=== PATIENT | female | born 1960 | race Caucasian/White ===

== ENCOUNTER 2016-05-30 08:17 | Inpatient (IN) | payer OTHER ==
[~2016-05-30] VITALS: Ht 167.6 cm; Wt 85.9 kg
[2016-05-30] MEDS ORDERED: ONDANSETRON 8 MG/54 ML D5W IV STA (08:38)
[2016-05-30] MEDS ORDERED: SODIUM CHLORIDE 0.9% 1000ML 1,000 ML IV STA ×2 (08:38→13:36)
[2016-05-30 08:50] LABS: BASO % 0.4 %; BASO ABS # 0.05 K/uL (0-0.2); COMPLETE YES; EOS % 0.9 %; HEMATOCRIT 41.6 % (37-47); IG% 0.3 %; LYMPH % 16.4 %; LYMPH ABS # 2.28 K/uL (1.2-3.4); MEAN CORPUSCULAR HEMOGLOBIN 30.1 pg (25-34); MEAN CORPUSCULAR HGB CONC 34.6 g/dl (32-36); MEAN PLATELET VOLUME 9.3 fL (7.4-10.4); MONO % 4.1 %; NEUT % 77.9 %; PLATELET COUNT 389 K/uL (130-400); RED BLOOD COUNT 4.78 M/uL (4.2-5.4); WHITE BLOOD COUNT 13.93 K/uL (4.8-10.8)
[2016-05-30 08:58] LABS: PROTHROMBIN TIME (PATIENT) 10.3 SECONDS (9.0-12.0)
[2016-05-30 09:08] LABS: ALT/SGPT 43 U/L (12-78); BLOOD UREA NITROGEN 18 mg/dl (7-18); BUN/CREATININE RATIO 16.4 (10-20); CALCIUM 9.5 mg/dl (8.5-10.1); CARBON DIOXIDE 23 mmol/L (21-32); CHLORIDE 106 mmol/L (98-107); GLUCOSE 130 mg/dl (70-99); MAGNESIUM 2.1 mg/dl (1.8-2.4); POTASSIUM 3.3 mmol/L (3.5-5.1); SODIUM 140 mmol/L (136-145)
--- NOTE | 2016-05-30 09:14 | DIAGNOSTIC IMAGING REPORT ---
CHEST ONE VIEW PORTABLE CLINICAL HISTORY: Chest pain, vomiting, nausea. COMPARISON STUDY: No previous studies for comparison. FINDINGS: The cardiac and mediastinal contours are normal. There is no evidence of focal pulmonary consolidation. There is no evidence of failure. No pleural effusions are visualized.[ There are old left-sided rib fractures. IMPRESSION: No active disease in the chest. Electronically signed by: Taqueria Ashley M.D. 05/30/2016 9:13 AM Dictated Date/Time: 05/30/2016 9:13 AM
[2016-05-30 09:18] LABS: ALKALINE PHOSPHATASE 77 U/L (45-117); AST/SGOT 38 U/L (15-37)
[2016-05-30] MEDS ORDERED: PROMETHAZINE HCL INJ 25 MG in SODIUM CHLORIDE 0.9% 50ML 50 ML IV STA (09:25)
[2016-05-30] MEDS ORDERED: PROCHLORPERAZINE 5 MG/ML 2 ML VIAL IV STA (10:51)
[2016-05-30] MEDS ORDERED: DiphenhydrAMINE HCL 50 MG/ML VIAL IV STA (10:51)
--- NOTE | 2016-05-30 11:34 | DIAGNOSTIC IMAGING REPORT ---
CT OF THE ABDOMEN AND PELVIS WITHOUT CONTRAST CLINICAL HISTORY: Intractable nausea and vomiting. COMPARISON STUDY: No previous studies for comparison. TECHNIQUE: Axial images of the abdomen and pelvis were obtained without IV contrast. Images were reviewed in the axial, sagittal, and coronal planes. FINDINGS: No pneumatosis, free air or portal venous gas is present. No renal, ureteral or bladder calculi are present. There is fatty infiltration of the liver with areas of sparing within the gallbladder fossa and kyaw hepatis. Unenhanced images of the spleen, adrenal glands and pancreas are normal. There is no peripancreatic or pericholecystic infiltration. No biliary or pancreatic ductal dilatation is identified. The caliber of small and large bowel are normal. The appendix is not visualized. There is no free fluid. There is no lymphadenopathy. Multilevel degenerative changes within the lumbar spine are noted. IMPRESSION: 1. No acute process within the abdomen or pelvis on unenhanced exam. 2. Fatty liver. 3. No urinary calculi or hydronephrosis. Electronically signed by: Atilio Barnett M.D. 05/30/2016 11:32 AM Dictated Date/Time: 05/30/2016 11:27 AM
[2016-05-30] MEDS ORDERED: ZNF4 PO (13:09)
[2016-05-30] MEDS ORDERED: ALPR-411 PO (13:09)
[2016-05-30] MEDS ORDERED: FLUO20CA35 PO (13:09)
[2016-05-30] MEDS ORDERED: PIRO-104 PO (13:09)
[2016-05-30] MEDS ORDERED: HYDR-5688 PO (13:09)
[2016-05-30] MEDS ORDERED: POTASSIUM CHLORIDE 10 MEQ / 100ML WTR IV STA (14:53)
[2016-05-30] MEDS ORDERED: LORAZEPAM INJ 0.5 MG in SYRINGE 0.25 ML IV STA (14:53)
[2016-05-30] MEDS ORDERED: NITROGLYCERIN 0.4 MG SL PER TAB CHARGE SL PRN (15:00)
--- NOTE | 2016-05-30 15:00 | EMERGENCY ROOM VISIT NOTE ---
History Report prepared by Reilly: Alberto Guillen Under the Supervision of: Dr. Leo Townsend M.D. First contact with patient: 08:29 Chief Complaint: CHEST PAIN Stated Complaint: CHEST PAIN, VOMITING, NAUSEA, SWEATS Nursing Triage Summary: Patient c/o n/v/d and midsternal chest pain since Saturday, was better, but worse again this morning. History of Present Illness The patient is a 55 year old female who presents to the Emergency Room with complaints of intermittent nausea & vomiting for the past three days. The patient's symptoms started three days ago, but she was feeling better yesterday and is feeling worse again today. She also has complaints of fevers, chills, chest pressure, cough, and diarrhea. She has abdominal pain with vomiting. The patient's chest pressure is in the center of her chest, which she relates to feeling anxious. She is not aware of any sick contacts. She is s/p appendectomy. She denies any problems with her kidneys. The patient is a former smoker that smoked for three years. Patient denies LOC, headache, diaphoresis, visual changes, neck pain, breathing difficulties, back pain, melena, hematochezia, urinary symptoms, numbness, weakness, lymphadenopathy, rash, or other complaints. Source of History: patient Onset: three days Position: other (GI) Quality: other (nausea & vomiting) Timing: intermittent Associated Symptoms: + abdominal pain, + chest pain, + chills, + cough, + diarrhea, + fevers Review of Systems See HPI for pertinent positives and negatives. A total of ten systems were reviewed and were otherwise negative. Past Medical & Surgical Surgical Problems: (1) S/P appendectomy Family History No pertinent family history Social History Smoking Status: Former Smoker Current/Historical Medications Scheduled Alprazolam (Xanax), 0.5 MG PO HS Fluoxetine (Prozac), 20 MG PO QAM Piroxicam (Piroxicam), 20 MG PO QPM Tizanidine (Zanaflex ), 4-8 MG PO TID Scheduled PRN Hydrocodone/Acetaminophen 5MG/325MG ([place] 5MG/325MG), 1-2 TABLETS PO Q4H PRN for Pain Allergies Coded Allergies: Acetaminophen (Unverified Allergy, Severe, SEVERE SICKNESS, 05/30/16) Oxycodone (Unverified Allergy, Severe, SEVERE SICKNESS, 05/30/16) Physical Exam Vital Signs Date Time Temp Pulse Resp B/P Pulse Ox O2 Delivery O2 Flow Rate FiO2 05/30/16 13:42 91 05/30/16 13:29 87 141/88 05/30/16 12:41 74 20 133/85 95 Room Air 05/30/16 10:51 165/109 05/30/16 10:06 182/118 05/30/16 09:25 68 18 190/125 98 Room Air 05/30/16 08:30 70 05/30/16 08:24 36.8 76 16 116/103 99 Room Air Physical Exam GENERAL: Awake, alert, uncomfortable-appearing, actively dry heaving on exam. HENT: Normocephalic, atraumatic. Oropharynx unremarkable. EYES: Normal conjunctiva. Sclera non-icteric. NECK: Supple. No nuchal rigidity. FROM. No JVD. RESPIRATORY: Clear to auscultation. CARDIAC: Regular rate, normal rhythm. Extremities warm and well perfused. Pulses equal. ABDOMEN: Soft, non-distended. No tenderness to palpation. No rebound or guarding. No masses. RECTAL: Deferred. MUSCULOSKELETAL: Chest examination reveals no tenderness. The back is symmetrical on inspection without obvious abnormality. There is no CVA tenderness to palpation. No joint edema. LOWER EXTREMITIES: Calves are equal size bilaterally and non-tender. No edema. No discoloration. NEURO: Normal sensorium. No sensory or motor deficits noted. SKIN: No rash or jaundice noted. Medical Decision & Procedures ER Provider Diagnostic Interpretation: X ray results as stated below per my interpretation and radiologist interpretation. Other radiology results as stated below per my review and radiologist interpretation CHEST ONE VIEW PORTABLE CLINICAL HISTORY: Chest pain, vomiting, nausea. COMPARISON STUDY: No previous studies for comparison. FINDINGS: The cardiac and mediastinal contours are normal. There is no evidence of focal pulmonary consolidation. There is no evidence of failure. No pleural effusions are visualized.[ There are old left-sided rib fractures. IMPRESSION: No active disease in the chest. Electronically signed by: Taqueria Ashley M.D. 05/30/2016 9:13 AM Dictated Date/Time: 05/30/2016 9:[address] OF THE ABDOMEN AND PELVIS WITHOUT CONTRAST CLINICAL HISTORY: Intractable nausea and vomiting. COMPARISON STUDY: No previous studies for comparison. TECHNIQUE: Axial images of the abdomen and pelvis were obtained without IV contrast. Images were reviewed in the axial, sagittal, and coronal planes. FINDINGS: No pneumatosis, free air or portal venous gas is present. No renal, ureteral or bladder calculi are present. There is fatty infiltration of the liver with areas of sparing within the gallbladder fossa and kyaw hepatis. Unenhanced images of the spleen, adrenal glands and pancreas are normal. There is no peripancreatic or pericholecystic infiltration. No biliary or pancreatic ductal dilatation is identified. The caliber of small and large bowel are normal. The appendix is not visualized. There is no free fluid. There is no lymphadenopathy. Multilevel degenerative changes within the lumbar spine are noted. IMPRESSION: 1. No acute process within the abdomen or pelvis on unenhanced exam. 2. Fatty liver. 3. No urinary calculi or hydronephrosis. Electronically signed by: Atilio Barnett M.D. 05/30/2016 11:32 AM Dictated Date/Time: 05/30/2016 11:27 AM Laboratory Results 05/30/16 08:30 Red Blood Count 4.78, Mean Corpuscular Volume 87.0, Mean Corpuscular Hemoglobin 30.1, Mean Corpuscular Hemoglobin Concent 34.6, Mean Platelet Volume 9.3, Neutrophils (%) (Auto) 77.9, Lymphocytes (%) (Auto) 16.4, Monocytes (%) (Auto) 4.1, Eosinophils (%) (Auto) 0.9, Basophils (%) (Auto) 0.4, Neutrophils # (Auto) 10.86, Lymphocytes # (Auto) 2.28, Monocytes # (Auto) 0.57, Eosinophils # (Auto) 0.13, Basophils # (Auto) 0.05 05/30/16 08:30 Test 05/30/16 08:30 05/30/16 08:35 05/30/16 08:39 White Blood Count 13.93 K/uL (4.8-10.8) Red Blood Count 4.78 M/uL (4.2-5.4) Hemoglobin 14.4 g/dL (12.0-16.0) Hematocrit 41.6 % (37-47) Mean Corpuscular Volume 87.0 fL (80-100) Mean Corpuscular Hemoglobin 30.1 pg (25-34) Mean Corpuscular Hemoglobin Concent 34.6 g/dl (32-36) Platelet Count 389 K/uL (130-400) Mean Platelet Volume 9.3 fL (7.4-10.4) Neutrophils (%) (Auto) 77.9 % Lymphocytes (%) (Auto) 16.4 % Monocytes (%) (Auto) 4.1 % Eosinophils (%) (Auto) 0.9 % Basophils (%) (Auto) 0.4 % Neutrophils # (Auto) 10.86 K/uL (1.4-6.5) Lymphocytes # (Auto) 2.28 K/uL (1.2-3.4) Monocytes # (Auto) 0.57 K/uL (0.11-0.59) Eosinophils # (Auto) 0.13 K/uL (0-0.5) Basophils # (Auto) 0.05 K/uL (0-0.2) RDW Standard Deviation 46.6 fL (36.4-46.3) RDW Coefficient of Variation 14.6 % (11.5-14.5) Immature Granulocyte % (Auto) 0.3 % Immature Granulocyte # (Auto) 0.04 K/uL (0.00-0.02) Prothrombin Time 10.3 SECONDS (9.0-12.0) Prothromb Time International Ratio 1.0 (0.9-1.1) Activated Partial Thromboplast Time 25.7 SECONDS (21.0-31.0) Partial Thromboplastin Ratio 1.0 Anion Gap 11.0 mmol/L (3-11) Est Creatinine Clear Calc Drug Dose 66.8 ml/min Estimated GFR () 66.4 Estimated GFR (Non- 57.3 BUN/Creatinine Ratio 16.4 (10-20) Calcium Level 9.5 mg/dl (8.5-10.1) Magnesium Level 2.1 mg/dl (1.8-2.4) Total Bilirubin 0.3 mg/dl (0.2-1) Direct Bilirubin < 0.1 mg/dl (0-0.2) Aspartate Amino Transf (AST/SGOT) 38 U/L (15-37) Alanine Aminotransferase (ALT/SGPT) 43 U/L (12-78) Alkaline Phosphatase 77 U/L (45-117) Total Protein 8.2 gm/dl (6.4-8.2) Albumin 4.2 gm/dl (3.4-5.0) Lipase 142 U/L (73-393) Thyroid Stimulating Hormone (TSH) 1.290 uIu/ml (0.300-4.500) Influenza Type A Antigen Neg for Influ A (NEG) Influenza Type B Antigen Neg for Influ B (NEG) Bedside Troponin I 0.000 ng/ml (0-0.045) Laboratory results reviewed by me Medications Administered Medications (Trade) Dose Ordered Sig/Juan R Route Start Time Stop Time Status Last Admin Dose Admin Sodium Chloride (Nss 1000ml) 1,000 ml @ 999 mls/hr Q1H1M STAT IV 05/30/16 08:38 05/30/16 09:38 DC 05/30/16 08:46 999 MLS/HR Ondansetron HCl 8 mg 8 mg NOW STAT IV 05/30/16 08:38 05/30/16 08:41 DC 05/30/16 08:46 8 MG Promethazine HCl/ Sodium Chloride (Phenergan Inj/ Nss 50ml) 51 ml @ 204 mls/hr NOW STAT IV 05/30/16 09:25 05/30/16 09:39 DC 05/30/16 09:42 204 MLS/HR Prochlorperazine Edisylate (Compazine Inj) 10 mg NOW STAT IV 05/30/16 10:51 05/30/16 10:52 DC 05/30/16 11:07 10 MG Diphenhydramine HCl 25 mg 25 mg NOW STAT IV 05/30/16 10:51 05/30/16 10:52 DC 05/30/16 11:07 25 MG Sodium Chloride (Nss 1000ml) 1,000 ml @ 200 mls/hr Q5H STAT IV 05/30/16 13:36 05/30/16 18:35 05/30/16 14:26 200 MLS/HR ECG Indication: chest pain Rate (beats per minute): 67 Rhythm: sinus with SA Findings: RBBB, no acute ischemic change ED Course 0835: The patient was evaluated in room B10. A complete history and physical exam was performed. 0838: Zofran 8 mg IV, NSS 1000 ml @ 999 mls/hr. 0908: Checked on the patient. 0925: Promethazine HCl 25 mg / NSS 51 ml @ 204 mls/hr. 1051: Benadryl 25 mg IV, Compazine 10 mg IV. 1330: The patient is still nauseated. 1333: Discussed the case with Dr. [facility]. The patient will be evaluated. 1336: NSS 1000 ml @ 200 mls/hr. Medical Decision Triage Nursing notes reviewed. The patient's presentation and history were concerning for nausea, vomiting, diarrhea, and chest pain. Etiologies such as cardiac sources, gastroenteritis, food borne illness, infections, obstruction, pancreatitis, appendicitis, diverticulitis, inflammatory bowel disease, GI bleed, biliary pathology, toxicologic, esophagitis, Boerhaave syndrome, as well as others were entertained. The patient was evaluated. She was extremely nauseated and had dry heaving. She was given IV Zofran and normal saline. She did not have any significant abdominal pain. She noted some chest discomfort. Her ECG was nonischemic. Chest x-ray did not show any abnormalities. She was reassessed and was still very nauseated. She was given IV Phenergan. She was still nauseated after this and was given IV Benadryl and IV Compazine. She was somewhat better but still nauseated. CT imaging was performed and revealed no evidence of obstruction or acute process. Given the issues further evaluation and management will be necessary. Consultation was made with internal medicine. The patient was evaluated for further treatment. The chart was completed utilizing [employer] Speech voice recognition software. Grammatical errors, random word insertions, pronoun errors, and incomplete sentences are an occasional consequence of this system due to software limitations, ambient noise, and hardware issues. Any formal questions or concerns about the content, text, or information contained within the body of this dictation should be directly addressed to the physician for clarification. Consults Time Called: 1325 Consulting Physician: Dr. Roberts [facility] Hospitalist. Returned Call: [phone]: Discussed the case with Dr. [facility] Hospitalist. The patient will be evaluated. Impression Primary Impression: Substernal precordial chest pain Additional Impression: Intractable nausea and vomiting Scribe Attestation The scribe's documentation has been prepared under my direction and personally reviewed by me in its entirety. I confirm that the note above accurately reflects all work, treatment, procedures, and medical decision making performed by me. Departure Information Dispostion Being Evaluated By Hospitalist Referrals No Doctor, Assigned (PCP) Patient Instructions My [facility] Problem Qualifiers
[2016-05-30] MEDS ORDERED: LORAZEPAM 2 MG/ML 1 ML VIAL IV STA (15:04)
[2016-05-30] MEDS ORDERED: SODIUM CHLORIDE 0.9% 500ML 500 ML IV STA (15:04)
--- NOTE | 2016-05-30 15:17 | Gastrointestinal Consultation ---
Gastrointestinal Consultation Date of Consultation: May 30, 2016 Consulting Physician: Mirtha Reason for Consultation: N/V History of Present Illness Ms. Liu is a 55 year old female with past medical history significant for psoriasis, anxiety, cervical disc herniation s/p appendectomy in 2014 with abscess formation and repair the next week, who presents to the ED for evaluation of chest pain, nausea, vomiting, diarrhea x 3 days. GI is consulted for management - of note she was scheduled to have an outpatient colonoscopy on 06/05/16 for colon cancer screening. Ms. Liu reports she woke up feeling ok, could tell she didnt feel herself. 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 Chest pain is localized to her epigastric region and is described as a constant pressure without any radiation. 08/11. This was associated with nausea and vomiting and chills (didnt check temp). She took some anxiety medication and rested. [place] slightly better. She woke up Saturday without N/V/D but chest pain persisted. Saturday night NVD returned after trying to eat, stools moving up to 10 times daily. Presently, still has chest pain, N/V/D. Last episode of emesis was in the ED. Now, 2-3 BMs still liquid. No abdominal pain, muscles do feel sore from vomiting. No black or bloody stools. Denies fever, chills, SOB, abdominal pain, black/bloody stools/emesis. No sick contacts, no recent ABX, no undercooked foods. + NSAIDs use 2 tabs of Aleve 3/4 times weekly. + ETOH use, 12 beers twice a week. + family history of CAD & LA EKG 05/30/16: NSR w/ RBBB CT ABD/Pelvix 05/30/16: No pneumatosis, free air or portal venous gas is present. No renal, ureteral or bladder calculi are present. There is fatty infiltration of the liver with areas of sparing within the gallbladder fossa and kyaw hepatis. Unenhanced images of the spleen, adrenal glands and pancreas are normal. There is no peripancreatic or pericholecystic infiltration. No biliary or pancreatic ductal dilatation is identified. The caliber of small and large bowel are normal. The appendix is not visualized. There is no free fluid. There is no lymphadenopathy. Multilevel degenerative changes within the lumbar spine are noted. Chest XR 05/30/16: The cardiac and mediastinal contours are normal. There is no evidence of focal pulmonary consolidation. There is no evidence of failure. No pleural effusions are visualized.[ There are old left-sided rib fractures. Past Medical/Surgical History Medical Problems: (1) Intractable nausea and vomiting Status: Acute (2) Substernal precordial chest pain Status: Acute Social History Smoking Status: Former Smoker Alcohol Use: heavy Drug Use: none Allergies Coded Allergies: Oxycodone (Unverified Allergy, Severe, SEVERE SICKNESS, 05/30/16) Current Medications Home Meds and Scripts Medications Dose Route/Sig Max Daily Dose Days Date Category Dose Instructions Xanax (Alprazolam) 0.5 Mg Tab 0.5 Mg PO HS 05/30/16 Reported Prozac (Fluoxetine HCl) 20 Mg Cap 20 Mg PO QAM 05/30/16 Reported Zanaflex (Tizanidine HCl) 4 Mg Tab 4-8 Mg PO TID 05/30/16 Reported [place] 5MG/325MG (Acetaminophen/Hydrocodone Bitart) Tab 1-2 Tablets PO Q4H PRN 05/30/16 Reported PRN PAIN Piroxicam 20 Mg Cap 20 Mg PO QPM 30 05/30/16 Reported WITH EVENING MEAL Review of Systems Constitutional: + chills, No fever Respiratory: No cough, No shortness of breath Cardiac: + chest pain, No edema Abdomen: + diarrhea, + nausea, + vomiting, No GI bleeding, No constipation, No pain Skin: No itch, No rash Physical Exam Date Time Temp Pulse Resp B/P Pulse Ox O2 Delivery O2 Flow Rate FiO2 05/30/16 15:02 94 17 141/88 96 Room Air 05/30/16 13:42 91 05/30/16 13:29 87 141/88 05/30/16 12:41 74 20 133/85 95 Room Air 05/30/16 10:51 165/109 05/30/16 10:06 182/118 05/30/16 09:25 68 18 190/125 98 Room Air 05/30/16 08:30 70 05/30/16 08:24 36.8 76 16 116/103 99 Room Air General Appearance: + mild distress (patient was evaluated in the ED, felt very anxious and was restless ) Eyes: PERRL ENT: hearing grossly normal Neck: supple, trachea midline Respiratory/Chest: chest non-tender, lungs clear, normal breath sounds, no respiratory distress, no accessory muscle use Cardiovascular: regular rate, rhythm, no edema, no gallop, no murmur Abdomen: normal bowel sounds, soft, no organomegaly, no pulsatile mass, + tenderness (generalized soreness, no pain) Neurologic/Psych: alert, normal mood/affect, oriented x 3 Skin: normal color, no jaundice, warm/dry, no rash Laboratory Results Last 24 Hours Test 05/30/16 08:30 05/30/16 08:35 05/30/16 08:39 05/30/16 14:53 White Blood Count 13.93 K/uL Red Blood Count 4.78 M/uL Hemoglobin 14.4 g/dL Hematocrit 41.6 % Mean Corpuscular Volume 87.0 fL Mean Corpuscular Hemoglobin 30.1 pg Mean Corpuscular Hemoglobin Concent 34.6 g/dl Platelet Count 389 K/uL Mean Platelet Volume 9.3 fL Neutrophils (%) (Auto) 77.9 % Lymphocytes (%) (Auto) 16.4 % Monocytes (%) (Auto) 4.1 % Eosinophils (%) (Auto) 0.9 % Basophils (%) (Auto) 0.4 % Neutrophils # (Auto) 10.86 K/uL Lymphocytes # (Auto) 2.28 K/uL Monocytes # (Auto) 0.57 K/uL Eosinophils # (Auto) 0.13 K/uL Basophils # (Auto) 0.05 K/uL RDW Standard Deviation 46.6 fL RDW Coefficient of Variation 14.6 % Immature Granulocyte % (Auto) 0.3 % Immature Granulocyte # (Auto) 0.04 K/uL Prothrombin Time 10.3 SECONDS Prothromb Time International Ratio 1.0 Activated Partial Thromboplast Time 25.7 SECONDS Partial Thromboplastin Ratio 1.0 Sodium Level 140 mmol/L Potassium Level 3.3 mmol/L Chloride Level 106 mmol/L Carbon Dioxide Level 23 mmol/L Anion Gap 11.0 mmol/L Blood Urea Nitrogen 18 mg/dl Creatinine 1.10 mg/dl Est Creatinine Clear Calc Drug Dose 66.8 ml/min Estimated GFR () 66.4 Estimated GFR (Non- 57.3 BUN/Creatinine Ratio 16.4 Random Glucose 130 mg/dl Calcium Level 9.5 mg/dl Magnesium Level 2.1 mg/dl Total Bilirubin 0.3 mg/dl Direct Bilirubin < 0.1 mg/dl Aspartate Amino Transf (AST/SGOT) 38 U/L Alanine Aminotransferase (ALT/SGPT) 43 U/L Alkaline Phosphatase 77 U/L Total Protein 8.2 gm/dl Albumin 4.2 gm/dl Lipase 142 U/L Thyroid Stimulating Hormone (TSH) 1.290 uIu/ml Influenza Type A Antigen Neg for Influ A Influenza Type B Antigen Neg for Influ B Bedside Troponin I 0.000 ng/ml Impression Patient is a 55 year old female with chest pain, n/v/d x 3 days with unremarkable imaging, mildly elevated WBC and normal lipase. Differentials include cardiac chest pain, viral gastroenteritis, infectious colitis, food born illness, gastritis, PUD etc. Suggest rule out cardiac source of chest pain and symptoms. GI will proceed with stool samples and conservative management. If n/v persists or becomes worrisome (melena/hematemesis coffee/ground emesis) may proceed with EGD Saturday. Plan IVF for hydration Clears as tolerated Stool culture, O&P, c.diff IV PPI once daily Anti-emetics as needed Owen medications as needed Avoid ASA, NSAIDs etc if possible GI will re-evaluate tomorrow Call with questions.
--- NOTE | 2016-05-30 15:19 | History and Physical ---
History & Physical Date & Time of Service: May 30, 2016 at 15:08 Chief Complaint: Chest Pain, Vomiting, Nausea, Sweats Primary Care Physician: Khalif Dang D.O. History of Present Illness Source: patient This patient is a pleasant 55-year-old female presents emergency department with a main complaint of vomiting and chest pain over the last 3 days. The patient woke up 2 days ago feeling "not quite right." She went to feed her horses. She started developing some midsternal chest pain and went back to the house. She immediately started vomiting. She also developed diarrhea, fever and chills. She did not take her temperature at home. She denies any focal abdominal pain. Her abdomen does feel sore, which she contributes to muscle soreness secondary to vomiting. She denies any blood in her stool. No recent antibiotic use. She describes this chest pain is a pressure underneath her sternum that has been constant for the last 2 days. 2 days ago, the patient took a Xanax and 2 sleeping pills [id number]. Her symptoms dissipated. She woke up the next morning feeling okay. She tried to eat some toast and immediately felt nauseous again and started vomiting. She denies any sick contacts. She does admit to having a history of panic disorder, but she says this is different. She denies any history of coronary artery disease. She has never had a stress test. She denies any shortness of breath, but the pain is worse with deep inspiration and expiration. She received Compazine, Phenergan, Zofran and Benadryl in the emergency department, which made her drowsy. When she woke up though the nausea was still present. Workup in the emergency department is notable for mild hypokalemia at 3.3. White count is 13.9. She was initially hypertensive. This has improved. Past Medical/Surgical History Psoriasis Arthritis History of panic disorder Surgical Problems: (1) S/P appendectomy Status: Resolved Family History No pertinent family history Grandfather in his 40s of a heart attack Cousin recently had a heart attack in his 40s Mother has a pacemaker and is living Father reportedly healthy living Social History Smoking Status: Former Smoker (has been smoking on and off for many years) Alcohol Use: socially ( reports drinking about a 12 pack of beer over the weekends) Marital Status: Housing status: lives with significant other Occupational Status: employed Allergies Coded Allergies: Oxycodone (Unverified Allergy, Severe, SEVERE SICKNESS, 05/30/16) Home Medications Scheduled Alprazolam (Xanax), 0.5 MG PO HS Fluoxetine (Prozac), 20 MG PO QAM Piroxicam (Piroxicam), 20 MG PO QPM Tizanidine (Zanaflex ), 4-8 MG PO TID Scheduled PRN Hydrocodone/Acetaminophen 5MG/325MG ([place] 5MG/325MG), 1-2 TABLETS PO Q4H PRN for Pain Review of Systems 10 system review performed and negative unless noted in HPI or below Physical Exam Vital Signs Date Time Temp Pulse Resp B/P Pulse Ox O2 Delivery O2 Flow Rate FiO2 05/30/16 13:42 91 05/30/16 13:29 87 141/88 05/30/16 12:41 74 20 133/85 95 Room Air 05/30/16 10:51 165/109 05/30/16 10:06 182/118 05/30/16 09:25 68 18 190/125 98 Room Air 05/30/16 08:30 70 05/30/16 08:24 36.8 76 16 116/103 99 Room Air General Appearance: + mild distress (in mild discomfort) Head: normocephalic Eyes: EOMI ENT: + pertinent finding (oral mucosa dry) Neck: no JVD Respiratory/Chest: lungs clear Cardiovascular: + pertinent finding (occasionally irregular. No murmurs auscultated.) Abdomen/GI: non tender, soft, + pertinent finding (bowel sounds present, but hypoactive) Extremities/Musculoskelatal: no calf tenderness, no pedal edema Neurologic/Psych: no motor/sensory deficits, oriented x 3 Skin: warm/dry, + pertinent finding (flushed) Diagnostics Laboratory Results Results Past 24 Hours Test 05/30/16 08:30 05/30/16 08:35 05/30/16 08:39 05/30/16 14:53 Range/Units White Blood Count 13.93 4.8-10.8 K/uL Red Blood Count 4.78 4.2-5.4 M/uL Hemoglobin 14.4 12.0-16.0 g/dL Hematocrit 41.6 37-47 % Mean Corpuscular Volume 87.0 80-100 fL Mean Corpuscular Hemoglobin 30.1 25-34 pg Mean Corpuscular Hemoglobin Concent 34.6 32-36 g/dl Platelet Count 389 130-400 K/uL Mean Platelet Volume 9.3 7.4-10.4 fL Neutrophils (%) (Auto) 77.9 % Lymphocytes (%) (Auto) 16.4 % Monocytes (%) (Auto) 4.1 % Eosinophils (%) (Auto) 0.9 % Basophils (%) (Auto) 0.4 % Neutrophils # (Auto) 10.86 1.4-6.5 K/uL Lymphocytes # (Auto) 2.28 1.2-3.4 K/uL Monocytes # (Auto) 0.57 0.11-0.59 K/uL Eosinophils # (Auto) 0.13 0-0.5 K/uL Basophils # (Auto) 0.05 0-0.2 K/uL RDW Standard Deviation 46.6 36.4-46.3 fL RDW Coefficient of Variation 14.6 11.5-14.5 % Immature Granulocyte % (Auto) 0.3 % Immature Granulocyte # (Auto) 0.04 0.00-0.02 K/uL Prothrombin Time 10.3 9.0-12.0 SECONDS Prothromb Time International Ratio 1.0 0.9-1.1 Activated Partial Thromboplast Time 25.7 21.0-31.0 SECONDS Partial Thromboplastin Ratio 1.0 Sodium Level 140 136-145 mmol/L Potassium Level 3.3 3.5-5.1 mmol/L Chloride Level 106 98-107 mmol/L Carbon Dioxide Level 23 21-32 mmol/L Anion Gap 11.0 3-11 mmol/L Blood Urea Nitrogen 18 7-18 mg/dl Creatinine 1.10 0.60-1.20 mg/dl Est Creatinine Clear Calc Drug Dose 66.8 ml/min Estimated GFR () 66.4 Estimated GFR (Non- 57.3 BUN/Creatinine Ratio 16.4 10-20 Random Glucose 130 70-99 mg/dl Calcium Level 9.5 8.5-10.1 mg/dl Magnesium Level 2.1 1.8-2.4 mg/dl Total Bilirubin 0.3 0.2-1 mg/dl Direct Bilirubin < 0.1 0-0.2 mg/dl Aspartate Amino Transf (AST/SGOT) 38 15-37 U/L Alanine Aminotransferase (ALT/SGPT) 43 12-78 U/L Alkaline Phosphatase 77 45-117 U/L Total Protein 8.2 6.4-8.2 gm/dl Albumin 4.2 3.4-5.0 gm/dl Lipase 142 73-393 U/L Thyroid Stimulating Hormone (TSH) 1.290 0.300-4.500 uIu/ml Influenza Type A Antigen Neg for Influ A NEG Influenza Type B Antigen Neg for Influ B NEG Bedside Troponin I 0.000 0-0.045 ng/ml Diagnostic Radiology Patient Name: TRACEE MELTON Unit Number: [id number] Dictated: 05/30/16912 Transcribed: 05/30/16912 ARG Printed Date/Time: [~ rep prt dt]/[~ rep prt tm] [~ rep ct labl] - [~ rep ct ivnm] [facility] Radiology Department [place] [id number] Dictated: 05/30/16912 Transcribed: 05/30/16912 ARG Printed Date/Time: [~ rep prt dt]/[~ rep prt tm] [~ rep ct labl] - [~ rep ct ivnm] Patient: TRACEE MELTON Address1: [address] [place] [address] Rec: [id number] Address2: Acct ID: [id number] [facility] Zip: [place] [address] Date: 1960 Sex: F Room/Bed: Ref Phy: No Doctor, Assigned SC: SHIRLEY Att Phy: Report #: [id number] Coco Phy: No Doctor, Assigned Test: CXR1P Admit Phy: Chain Repairer: SEVERINO Interpreting Phy: Taqueria Ashley M.D. Diagnosis: CHEST PAIN, VOMITING, NAUSEA , SWEATS Ordering Phy: Leo Townsend MD Service Date: 05/30/16 Admit Date: 05/30/16 MNE: [id number] CONF: DICTATED BY: Taqueria Ashley M.D.]] CC: Leo Townsend MD No Doctor, Assigned Endcc: [~ rep ct add3]] CHEST ONE VIEW PORTABLE CLINICAL HISTORY: Chest pain, vomiting, nausea. COMPARISON STUDY: No previous studies for comparison. FINDINGS: The cardiac and mediastinal contours are normal. There is no evidence of focal pulmonary consolidation. There is no evidence of failure. No pleural effusions are visualized.[ There are old left-sided rib fractures. IMPRESSION: No active disease in the chest. Electronically signed by: Taqueria Ashley M.D. 05/30/2016 9:13 AM Dictated Date/Time: 05/30/2016 9:13 AM The status of this report is Signed. Draft = Not yet reviewed or approved by Radiologist. Signed = Reviewed and approved by Radiologist. <AttendingPhy></AttendingPhy> <FamilyPhy>No Doctor, Assigned</FamilyPhy> < PrimaryPhy>No Doctor, Assigned</PrimaryPhy> <UnitNumber>[id number]</UnitNumber> <VisitNumber>[id number]</VisitNumber> <PatientName>TRACEE MELTON</ PatientName> <DateOfBirth>1960</DateOfBirth> <Location>C.EDB</Location> < ServiceDate>05/30/16</ServiceDate> <MNE>ESINDI</MNE> <OrderingPhy>Leo Townsend MD</OrderingPhy> <OrderingPhyMNE>f rep ord dr warren</OrderingPhyMNE> < DictatingPhyMNE>f rep dict dr warren</DictatingPhyMNE> <CCListMNE>f rep ct briana</ CCListMNE> <AdmittingPhyMNE>f pt admit dr warren</AdmittingPhyMNE> <AttendingPhyMNE >f pt attend dr warren</AttendingPhyMNE> <ConsultingPhyMNE>f pt consult dr warren</ConsultingPhyMNE> <FamilyPhyMNE>f pt fam dr warren</FamilyPhyMNE> <OtherPhyMNE>f pt other dr warren</OtherPhyMNE> < PrimaryPhyMNE>f pt prim care dr warren</PrimaryPhyMNE> <ReferringPhyMNE>f pt referring dr warren</ReferringPhyMNE> Patient Name: TRACEE MELTON Unit Number: [id number] Dictated: 05/30/161126 Transcribed: 05/30/161126 JA Printed Date/Time: [~ rep prt dt]/[~ rep prt tm] [~ rep ct labl] - [~ rep ct ivnm] [facility] [place] [place] [address] Dictated: 05/30/161126 Transcribed: 05/30/161126 JA Printed Date/Time: [~ rep prt dt]/[~ rep prt tm] [~ rep ct labl] - [~ rep ct ivnm] Patient: TRACEE MELTON Address1: [address] [place] [address] Rec: [id number] Address2: Acct ID: [id number] [facility] Zip: [place] [address] Date: 1960 Sex: F Room/Bed: Ref Phy: Khalif Dang D.O. SC: EASTONB Att Phy: Report #: [id number] [facility] Phy: Khalif Dang D.O. Test: APWO Admit Phy: Chain Repairer: BOB Interpreting Phy: Atilio Barnett MD Diagnosis: CHEST PAIN, VOMITING, NAUSEA , SWEATS Ordering Phy: Leo Townsend MD Service Date: 05/30/16 Admit Date: 05/30/16 MNE: [id number] CONF: DICTATED BY: Atilio Barnett MD]] CC: Khalif Dang D.O., John F., MD Endcc: [~ rep ct add3]] CT OF THE ABDOMEN AND PELVIS WITHOUT CONTRAST CLINICAL HISTORY: Intractable nausea and vomiting. COMPARISON STUDY: No previous studies for comparison. TECHNIQUE: Axial images of the abdomen and pelvis were obtained without IV contrast. Images were reviewed in the axial, sagittal, and coronal planes. FINDINGS: No pneumatosis, free air or portal venous gas is present. No renal, ureteral or bladder calculi are present. There is fatty infiltration of the liver with areas of sparing within the gallbladder fossa and kyaw hepatis. Unenhanced images of the spleen, adrenal glands and pancreas are normal. There is no peripancreatic or pericholecystic infiltration. No biliary or pancreatic ductal dilatation is identified. The caliber of small and large bowel are normal. The appendix is not visualized. There is no free fluid. There is no lymphadenopathy. Multilevel degenerative changes within the lumbar spine are noted. IMPRESSION: 1. No acute process within the abdomen or pelvis on unenhanced exam. 2. Fatty liver. 3. No urinary calculi or hydronephrosis. Electronically signed by: Atilio Barnett M.D. 05/30/2016 11:32 AM Dictated Date/Time: 05/30/2016 11:27 AM The status of this report is Signed. Draft = Not yet reviewed or approved by Radiologist. Signed = Reviewed and approved by Radiologist. <AttendingPhy></AttendingPhy> <FamilyPhy>Khalif Dang D.O.</FamilyPhy> < PrimaryPhy>Khalif Dang D.O.</PrimaryPhy> <UnitNumber>[id number]</UnitNumber > <VisitNumber>[id number]</VisitNumber> <PatientName>GERONIMOTRACEE Amandeep</ PatientName> <DateOfBirth>1960</DateOfBirth> <Location>C.EDB</Location> < ServiceDate>05/30/16</ServiceDate> <MNE>ESINDI</MNE> <OrderingPhy>Leo Townsend MD</OrderingPhy> <OrderingPhyMNE>f rep ord dr warren</OrderingPhyMNE> < DictatingPhyMNE>f rep dict dr warren</DictatingPhyMNE> <CCListMNE>f rep ct briana</ CCListMNE> <AdmittingPhyMNE>f pt admit dr warren</AdmittingPhyMNE> <AttendingPhyMNE >f pt attend dr warren</AttendingPhyMNE> <ConsultingPhyMNE>f pt consult dr warren</ConsultingPhyMNE> <FamilyPhyMNE>f pt fam dr warren</FamilyPhyMNE> <OtherPhyMNE>f pt other dr warren</OtherPhyMNE> < PrimaryPhyMNE>f pt prim care dr warren</PrimaryPhyMNE> <ReferringPhyMNE>f pt referring dr warren</ReferringPhyMNE> EKG Normal sinus rhythm with sinus arrhythmia 67 bpm Right bundle branch block No previous for comparison Impression Assessment and Plan 55-year-old female presents the emergency department with nausea, vomiting, diarrhea, fever, chills and chest pain. Chest pain-quite possibly GI related given chronic use of NSAIDs in addition to fairly heavy alcohol use on the weekends. She does however have risk factors for cardiac disease. -Observe in telemetry -Trend cardiac enzymes -Daily EKG -Begin pantoprazole 40 mg IV BID -Hold NSAIDs -GI consult -Clear liquid diet for now-->NPO after midnight -check DDIMER Nausea, vomiting, diarrhea-? Viral illness. Flu neg -Continue IV fluids as noted below -Zofran and Phenergan IV PRN -Stool culture, C. difficile Hypokalemia -KCl 10 mEq now -NS + 20 mEq KCl @ 150 cc/hr Anxiety/panic disorder -Ativan 0.5 mg IV 1 dose now -Continue Xanax 0.5 mg at night as needed -Continue Prozac 20 mg in the morning History of arthritis -Hold home dose of piroxicam 20 mg at night -Hold Zanaflex as patient has not really needed it lately DVT prophylaxis -Teds, SCDs -I will hold off on chemical means for now as the patient may be discharged tomorrow CODE STATUS -LEVEL I FULL CODE Level of Care Telemetry Resuscitation Status FULL RESUSCITATION VTE Prophylaxis VTE Risk Assessment Done? Y/N: Yes Risk Level: Low Given or contraindicated: T.E.DReese Stockings, SCD's Reviewed: Pt Seen/Exam by Me History Physician Data Entry Operator Supervision Note: I interviewed and examined the patient. Discussed with JENNIFER Doty and agree with findings and plan as documented in the note. Any exceptions or clarifications are listed here: Patient here with substernal constant chest pain that started just prior to 2 days of intractable nausea vomiting diarrhea. She does have a history of long- standing NSAID use. She has had fevers and chills and was exposed to a child with a febrile illness several days ago as well. Nonbloody emesis and stool, no melena. Vital signs reviewed Obese, no acute distress, dry heaving and belching through the interview, AAO 3 Regular rate and rhythm, no murmurs gallops or rubs normal S1 and S2 Pulmonary clear to auscultation bilaterally breathing unlabored no wheezes crackles or rhonchi Abdomen positive bowel sounds obese, soft nontender nondistended Extremities no edema, 2+ dorsalis pedis pulses Skin warm and dry, psoriatic plaques on extensor surfaces of arms and legs as well as underneath breasts 55-year-old female with a history of psoriasis, anxiety, here with constant chest pain and intractable nausea/vomiting/diarrhea. Consider viral gastroenteritis and could have esophagitis and gastritis secondary to NSAID use. No signs of DVT on exam, but will check a d-dimer and if positive, we'll go ahead and get a CT angiogram of the chest. Otherwise, will rule out for acute coronary syndrome and treat with IV fluids and anti-emetics. Appreciate gastroenterology consultation see if needs EGD to assess for esophagitis and/or gastritis. Documented By: Ya Roberts
[2016-05-30] MEDS ORDERED: IV FLUIDS COMPLETED PRN (16:00)
[2016-05-30] MEDS ORDERED: LORAZEPAM 2 MG/ML 1 ML VIAL IV PRN (16:00)
[2016-05-30 16:12] VITALS: Ht 167.6 cm; Wt 85.9 kg
[2016-05-30 17:59] VITALS: BP 118/73; PULSE 82; TEMP 37.8; O2SAT 96
[2016-05-30] MEDS ORDERED: LORAZEPAM INJ 0.5 MG in SYRINGE 0.75 ML IV PRN (18:15)
[2016-05-30] MEDS: NSS + 20MEQ KCL 1000ML 1,000 ML IV SCH (18:59)
[2016-05-30 19:27] LABS: URINE APPEARANCE CLEAR (CLEAR); URINE BILIRUBIN NEG (NEG); URINE COLOR YELLOW; URINE NITRITE NEG (NEG); URINE SPECIFIC GRAVITY 1.015 (1.000-1.030); UROBILINOGEN NEG (NEG)
[2016-05-30 19:36] LABS: MANUAL MICROSCOPIC REQUIRED? NO; REVIEW REQ? NO
[2016-05-30 19:55] VITALS: BP 118/77; PULSE 79; TEMP 37.4; O2SAT 96
[2016-05-30] MEDS: ALPRAZOLAM 0.5 MG TAB PO SCH (20:43)
[2016-05-30] MEDS: PANTOprazole INJ 40 MG in SYRINGE 0 ML IV SCH (20:55)
[2016-05-30 22:26] LABS: CKMB/CK RATIO 0.4 (0-3.0)
[2016-05-31] VITALS (7 sets, daily range): BP systolic 114–153; BP diastolic 74–99; PULSE 58–88; TEMP 36.9–37.3; O2SAT 94–97
[2016-05-31] MEDS: NSS + 20MEQ KCL 1000ML 1,000 ML IV SCH ×4 (00:57→20:32)
[2016-05-31 04:34] LABS: BASO % 0.2 %; BASO ABS # 0.02 K/uL (0-0.2); COMPLETE YES; EOS % 0.9 %; HEMATOCRIT 36.5 % (37-47); IG% 0.2 %; LYMPH % 35.1 %; LYMPH ABS # 3.48 K/uL (1.2-3.4); MEAN CELL VOLUME 88.2 fL (80-100); MEAN CORPUSCULAR HGB CONC 32.9 g/dl (32-36); MEAN PLATELET VOLUME 9.1 fL (7.4-10.4); MONO % 4.7 %; NEUT % 58.9 %; PLATELET COUNT 325 K/uL (130-400); RED BLOOD COUNT 4.14 M/uL (4.2-5.4); WHITE BLOOD COUNT 9.91 K/uL (4.8-10.8)
[2016-05-31 04:53] LABS: BUN/CREATININE RATIO 8.7 (10-20); CALCIUM 8.2 mg/dl (8.5-10.1); CREATININE 0.94 mg/dl (0.60-1.20); MAGNESIUM 2.2 mg/dl (1.8-2.4); POTASSIUM 4.1 mmol/L (3.5-5.1)
[2016-05-31 05:13] LABS: CKMB/CK RATIO 0.3 (0-3.0)
[2016-05-31] MEDS: FLUOXETINE HCL 20 MG CAP PO SCH (07:47)
--- NOTE | 2016-05-31 10:34 | Gastroenterology Progress Note ---
Progress Note Date of Service: May 31, 2016 Subjective Pt evaluation today including: conversation w/ patient, physical exam, lab review Pt was seen and evaluated this morning - she is feeling 90% better. No more nausea, epigastric pain, vomiting. + loose stools, two this morning. No black/ bloody. Tolerated clear liquids last night. Wants to go home. C.diff negative. Other stools still pending. Review of Systems Constitutional: No chills, No fever Respiratory: No cough, No shortness of breath Cardiac: No chest pain, No edema Abdomen: + diarrhea, No GI bleeding, No constipation, No nausea, No pain, No vomiting Medications Current Inpatient Medications Medications (Trade) Dose Ordered Sig/Juan R Route Start Time Stop Time Status Last Admin Dose Admin Promethazine HCl 12.5 mg/Sodium Chloride 50.5 ml @ 204 mls/hr Q6H PRN IV 05/30/16 15:00 06/29/16 14:59 Potassium Chloride/Sodium Chloride 1,000 ml @ 150 mls/hr Q6H40M IV 05/30/16 18:30 06/29/16 14:59 05/31/16 07:47 150 MLS/HR Pantoprazole Sodium/Syringe (Protonix Inj/ Syringe) 10 ml @ 5 mls/min DAILY@09,21 IV 05/30/16 21:00 06/29/16 20:59 05/30/16 20:55 5 MLS/MIN Acetaminophen (Tylenol Tab) 650 mg Q4H PRN PO 05/30/16 15:00 06/29/16 14:59 Ondansetron HCl (Zofran Inj) 4 mg Q6H PRN IV 05/30/16 15:00 06/29/16 14:59 Nitroglycerin (Nitrostat Tab) 0.4 mg UD PRN SL 05/30/16 15:00 06/29/16 14:59 Alprazolam (Xanax Tab) 0.5 mg HS PO 05/30/16 21:00 06/29/16 20:59 05/30/16 20:43 0.5 MG Fluoxetine HCl (Prozac Cap) 20 mg QAM PO 05/31/16 09:00 06/30/16 08:59 Miscellaneous (Iv Fluids Completed) 1 ea PRN PRN N/A 05/30/16 16:00 05/30/17 15:59 Lorazepam 0.5 mg 0.5 mg Q8 PRN IV 05/30/16 16:00 06/29/16 15:59 Lorazepam/Syringe (Ativan Inj/ Syringe) 1 ml @ 1 mls/min Q8H PRN IV 05/30/16 18:15 06/29/16 18:14 Objective Vital Signs Date Time Temp Pulse Resp B/P Pulse Ox O2 Delivery O2 Flow Rate FiO2 05/31/16 08:00 97 Room Air 05/31/16 07:54 37.1 88 18 134/91 97 Room Air 05/31/16 04:00 Room Air 05/31/16 04:00 36.9 81 20 153/80 94 Room Air 05/31/16 00:27 37.0 78 20 114/74 96 Room Air 05/31/16 00:00 Room Air 05/30/16 20:00 Room Air 05/30/16 19:55 37.4 79 18 118/77 96 Room Air 05/30/16 17:59 37.8 82 18 118/73 96 Room Air 05/30/16 16:59 82 24 118/75 95 Room Air 05/30/16 16:12 Room Air 05/30/16 15:02 94 17 141/88 96 Room Air 05/30/16 13:42 91 05/30/16 13:29 87 141/88 05/30/16 12:41 74 20 133/85 95 Room Air 05/30/16 10:51 165/109 Physical Exam General Appearance: no apparent distress Eyes: PERRL ENT: hearing grossly normal Neck: supple Respiratory/Chest: lungs clear, normal breath sounds, no respiratory distress, no accessory muscle use Cardiovascular: regular rate, rhythm, no edema, no gallop, no JVD Abdomen: normal bowel sounds, non tender, soft, no organomegaly Neurologic/Psych: alert, normal mood/affect, oriented x 3 Skin: normal color, no jaundice, warm/dry Laboratory Results Last 24 Hours Test 05/30/16 15:50 05/30/16 19:00 05/30/16 21:00 05/30/16 22:07 D-Dimer 330 ug/L FEU Urine Color YELLOW Urine Appearance CLEAR Urine pH 5.0 Urine Specific [place] 1.015 Urine Protein NEG Urine Glucose (UA) NEG Urine Ketones NEG Urine Occult Blood NEG Urine Nitrite NEG Urine Bilirubin NEG Urine Urobilinogen NEG Urine Leukocyte Esterase NEG Total Creatine Kinase 2745 U/L Creatine Kinase MB 9.9 ng/ml Creatine Kinase MB Ratio 0.4 Troponin I 0.028 ng/ml Test 05/31/16 04:20 White Blood Count 9.91 K/uL Red Blood Count 4.14 M/uL Hemoglobin 12.0 g/dL Hematocrit 36.5 % Mean Corpuscular Volume 88.2 fL Mean Corpuscular Hemoglobin 29.0 pg Mean Corpuscular Hemoglobin Concent 32.9 g/dl Platelet Count 325 K/uL Mean Platelet Volume 9.1 fL Neutrophils (%) (Auto) 58.9 % Lymphocytes (%) (Auto) 35.1 % Monocytes (%) (Auto) 4.7 % Eosinophils (%) (Auto) 0.9 % Basophils (%) (Auto) 0.2 % Neutrophils # (Auto) 5.83 K/uL Lymphocytes # (Auto) 3.48 K/uL Monocytes # (Auto) 0.47 K/uL Eosinophils # (Auto) 0.09 K/uL Basophils # (Auto) 0.02 K/uL RDW Standard Deviation 47.1 fL RDW Coefficient of Variation 14.6 % Immature Granulocyte % (Auto) 0.2 % Immature Granulocyte # (Auto) 0.02 K/uL Sodium Level 145 mmol/L Potassium Level 4.1 mmol/L Chloride Level 113 mmol/L Carbon Dioxide Level 28 mmol/L Anion Gap 4.0 mmol/L Blood Urea Nitrogen 8 mg/dl Creatinine 0.94 mg/dl Est Creatinine Clear Calc Drug Dose 78.2 ml/min Estimated GFR () 80.3 Estimated GFR (Non- 69.3 BUN/Creatinine Ratio 8.7 Random Glucose 93 mg/dl Calcium Level 8.2 mg/dl Magnesium Level 2.2 mg/dl Total Creatine Kinase 3490 U/L Creatine Kinase MB 9.5 ng/ml Creatine Kinase MB Ratio 0.3 Troponin I 0.029 ng/ml Assessment and Plan Patient is a 55 year old female with chest pain, n/v/d x 3 days with unremarkable imaging, mildly elevated WBC and normal lipase. Differentials include cardiac chest pain, viral gastroenteritis, infectious colitis, food born illness, gastritis, PUD etc. Suggest rule out cardiac source of chest pain and symptoms. GI will proceed with stool samples and conservative management. No plan for inpatient EGD. IVF for hydration GI ok for clears as tolerated Stool culture, O&P, c.diff IV PPI once daily - please send home with omeprazole 20 mg daily Anti-emetics as needed Owen medications as needed Avoid ASA, NSAIDs etc if possible May do outpatient EGD if symptoms persist - already contacted [facility] to sign off. No GI contraindication to DC. Call with questions.
[2016-05-31] MEDS: PANTOprazole INJ 40 MG in SYRINGE 0 ML IV SCH ×2 (10:40→20:33)
[2016-05-31] MEDS ORDERED: OMEP20TA PO (13:17)
[2016-05-31] MEDS ORDERED: ONDA4TAB10 SL (13:17)
--- NOTE | 2016-05-31 13:24 | Discharge Instructions ---
Discharge Instructions Date of Service May 31, 2016. Admission Reason for Admission: Chest Pain, Intractable Vomiting Discharge Discharge Diagnosis / Problem: Non-Cardiac Chest Pain Discharge Goals Goal(s): Decrease discomfort, Improve function, Increase independence Activity Recommendations Activity Limitations: resume your previous activity . Instructions / Follow-Up Instructions / Follow-Up Chest Pain with Nausea/Vomiting/Diarrhea - Likely a Viral Gastroenteritis with stomach and esophageal irritation: - Your heart rhythm and cardiac enzymes were monitored and negative with low suspicion for a cardiac problem. - You symptoms are likely GI related and will be started on Omeprazole 20 mg daily (stomach acid medication) - AVOID NSAIDS - ASPIRIN, MOTRIN, IBUPROFEN, ALEVE - as these medications can be irritative to the stomach -- STOP PIROXICAM - as this is an NSAID at least until follow-up appointment with GI -- For mild pain use Tylenol but use as the bottle prescribes - Keep your follow-up appointment for your colonoscopy with GI and plan for possible EGD (upper scope) as an outpatient. Current Hospital Diet Patient's current hospital diet: Regular Diet Discharge Diet Recommended Diet: Regular Diet Pending Studies Studies pending at discharge: yes List of pending studies: Stool Culture Medical Emergencies . Who to Call and When: Medical Emergencies: If at any time you feel your situation is an emergency, please call 911 immediately. . Non-Emergent Contact Non-Emergency issues call your: Primary Care Provider Call Non-Emergent contact if: you have a fever, your pain is concerning you, you have any medication questions . . "Provider Documentation" section prepared by Carrol Bradshaw. VTE Core Measure Inpt VTE Proph given/why not?: Bev Ashraf, LIUDMILA's
--- NOTE | 2016-05-31 15:22 | Hospitalist Progress Note ---
Hospitalist Progress Note Date of Service May 31, 2016. Subjective Pt evaluation today including: conversation w/ patient, physical exam, chart review, lab review, review of studies, review of inpatient medication list Constitutional: No chills, No fever Respiratory: No cough, No shortness of breath Cardiovascular: No chest pain Abdomen: + diarrhea, No constipation, No nausea, No pain, No vomiting Musculoskeletal: No calf pain, No swelling Female : No dysuria Skin: No new/changing skin lesions, No rash Medications Current Inpatient Medications Medications (Trade) Dose Ordered Sig/Juan R Route Start Time Stop Time Status Last Admin Dose Admin Promethazine HCl 12.5 mg/Sodium Chloride 50.5 ml @ 204 mls/hr Q6H PRN IV 05/30/16 15:00 06/29/16 14:59 Potassium Chloride/Sodium Chloride 1,000 ml @ 150 mls/hr Q6H40M IV 05/30/16 18:30 06/29/16 14:59 05/31/16 15:02 150 MLS/HR Pantoprazole Sodium/Syringe (Protonix Inj/ Syringe) 10 ml @ 5 mls/min DAILY@21 IV 05/30/16 21:00 06/29/16 20:59 05/31/16 10:40 5 MLS/MIN Acetaminophen (Tylenol Tab) 650 mg Q4H PRN PO 05/30/16 15:00 06/29/16 14:59 Ondansetron HCl (Zofran Inj) 4 mg Q6H PRN IV 05/30/16 15:00 06/29/16 14:59 Nitroglycerin (Nitrostat Tab) 0.4 mg UD PRN SL 05/30/16 15:00 06/29/16 14:59 Alprazolam (Xanax Tab) 0.5 mg HS PO 05/30/16 21:00 06/29/16 20:59 05/30/16 20:43 0.5 MG Fluoxetine HCl (Prozac Cap) 20 mg QAM PO 05/31/16 09:00 06/30/16 08:59 Miscellaneous (Iv Fluids Completed) 1 ea PRN PRN N/A 05/30/16 16:00 05/30/17 15:59 Lorazepam 0.5 mg 0.5 mg Q8 PRN IV 05/30/16 16:00 06/29/16 15:59 Lorazepam/Syringe (Ativan Inj/ Syringe) 1 ml @ 1 mls/min Q8H PRN IV 05/30/16 18:15 06/29/16 18:14 Objective Vital Signs Date Time Temp Pulse Resp B/P Pulse Ox O2 Delivery O2 Flow Rate FiO2 05/31/16 15:02 37.2 69 18 151/97 97 Room Air 05/31/16 12:02 37.3 58 18 139/99 97 Room Air 05/31/16 08:00 97 Room Air 05/31/16 07:54 37.1 88 18 134/91 97 Room Air 05/31/16 04:00 Room Air 05/31/16 04:00 36.9 81 20 153/80 94 Room Air 05/31/16 00:27 37.0 78 20 114/74 96 Room Air 05/31/16 00:00 Room Air 05/30/16 20:00 Room Air 05/30/16 19:55 37.4 79 18 118/77 96 Room Air 05/30/16 17:59 37.8 82 18 118/73 96 Room Air 05/30/16 16:59 82 24 118/75 95 Room Air 05/30/16 16:12 Room Air Physical Exam General Appearance: WD/WN, no apparent distress Eyes: sclerae normal ENT: hearing grossly normal Neck: supple, no JVD, trachea midline Respiratory/Chest: lungs clear, normal breath sounds, no respiratory distress, no accessory muscle use Cardiovascular: regular rate, rhythm, no gallop, no murmur Abdomen: normal bowel sounds, non tender, soft Extremities: non-tender, no pedal edema 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: alert, oriented x 3 Skin: normal color, warm/dry Laboratory Results Last 24 Hours Test 05/30/16 15:50 05/30/16 19:00 05/30/16 21:00 05/30/16 22:07 D-Dimer 330 ug/L FEU Urine Color YELLOW Urine Appearance CLEAR Urine pH 5.0 Urine Specific [place] 1.015 Urine Protein NEG Urine Glucose (UA) NEG Urine Ketones NEG Urine Occult Blood NEG Urine Nitrite NEG Urine Bilirubin NEG Urine Urobilinogen NEG Urine Leukocyte Esterase NEG Total Creatine Kinase 2745 U/L Creatine Kinase MB 9.9 ng/ml Creatine Kinase MB Ratio 0.4 Troponin I 0.028 ng/ml Test 05/31/16 04:20 White Blood Count 9.91 K/uL Red Blood Count 4.14 M/uL Hemoglobin 12.0 g/dL Hematocrit 36.5 % Mean Corpuscular Volume 88.2 fL Mean Corpuscular Hemoglobin 29.0 pg Mean Corpuscular Hemoglobin Concent 32.9 g/dl Platelet Count 325 K/uL Mean Platelet Volume 9.1 fL Neutrophils (%) (Auto) 58.9 % Lymphocytes (%) (Auto) 35.1 % Monocytes (%) (Auto) 4.7 % Eosinophils (%) (Auto) 0.9 % Basophils (%) (Auto) 0.2 % Neutrophils # (Auto) 5.83 K/uL Lymphocytes # (Auto) 3.48 K/uL Monocytes # (Auto) 0.47 K/uL Eosinophils # (Auto) 0.09 K/uL Basophils # (Auto) 0.02 K/uL RDW Standard Deviation 47.1 fL RDW Coefficient of Variation 14.6 % Immature Granulocyte % (Auto) 0.2 % Immature Granulocyte # (Auto) 0.02 K/uL Sodium Level 145 mmol/L Potassium Level 4.1 mmol/L Chloride Level 113 mmol/L Carbon Dioxide Level 28 mmol/L Anion Gap 4.0 mmol/L Blood Urea Nitrogen 8 mg/dl Creatinine 0.94 mg/dl Est Creatinine Clear Calc Drug Dose 78.2 ml/min Estimated GFR () 80.3 Estimated GFR (Non- 69.3 BUN/Creatinine Ratio 8.7 Random Glucose 93 mg/dl Calcium Level 8.2 mg/dl Magnesium Level 2.2 mg/dl Total Creatine Kinase 3490 U/L Creatine Kinase MB 9.5 ng/ml Creatine Kinase MB Ratio 0.3 Troponin I 0.029 ng/ml Assessment and Plan 55-year-old female presents the emergency department with nausea, vomiting, diarrhea, fever, chills and chest pain. Chest Pain (RESOLVED) - Viral Gastroenteritis vs Chronic NSAIDs/Weekend ETOH Use - Cardiac enzymes trended and negative - Creatinine phosphokinase elevated - 2745 to 3490 - likely secondary to extensive vomiting - NSS + KCl 20 mEq at 150 mL/hr - Protonix 40 mg IV BID - Avoid NSAIDs - Enhanced head as tolerated - currently tolerating a regular diet - GI following - recommendations reviewed - planning to sign off at this time -- Plan for omeprazole 20 mg daily as outpatient -- Possible outpatient EGD if symptoms persist - patient is scheduled for colonoscopy on Saturday Hypokalemia: RESOLVED - Continue to monitor Anxiety Disorder: - Prozac 20 mg daily - Xanax 0.5 mg HS and Ativan 0.5 mg IV Q8H DVT Prophylaxis: - HANG/SCDs Code Status: FULL RESUSCITATION Disposition: - Trend creatinine phosphokinase and monitor for diet tolerance - hopeful discharge tomorrow Continued [facility] stay due to: multiple IV medications needed Discharge planning: home
[2016-05-31] MEDS: ONDANSETRON INJ 2 MG/ML 2 ML VIAL IV PRN (18:16)
[2016-05-31] MEDS: PROMETHAZINE HCL INJ 12.5 MG in SODIUM CHLORIDE 0.9% 50ML 50 ML IV PRN (19:17)
[2016-05-31] MEDS ORDERED: DiphenhydrAMINE INJ 25 MG in SYRINGE 0 ML IV SCH (20:00)
[2016-05-31] MEDS ORDERED: PROCHLORPERAZINE INJ 10 MG in SYRINGE 8 ML IV ONE (20:17)
[2016-05-31] MEDS ORDERED: DiphenhydrAMINE HCL 50 MG/ML VIAL IV ONE (20:30)
--- NOTE | 2016-05-31 21:12 | DIAGNOSTIC IMAGING REPORT ---
KUB CLINICAL HISTORY: Intractable nausea and vomiting. COMPARISON STUDY: CT of the abdomen and pelvis May 30, 2016. FINDINGS: There are old left-sided rib fractures. Bowel gas pattern is normal. No urinary calculi are identified. IMPRESSION: No evidence of a bowel obstruction. Electronically signed by: Atilio Barnett M.D. 05/31/2016 9:11 PM Dictated Date/Time: 05/31/2016 9:10 PM
[2016-05-31] MEDS: ALPRAZOLAM 0.5 MG TAB PO SCH (21:24)
[2016-06-01 00:24] VITALS: BP 158/94; PULSE 89; TEMP 36.5; O2SAT 97
[2016-06-01] MEDS ORDERED: NURSING VERBAL MED ORDER ONE (01:30)
[2016-06-01] MEDS ORDERED: LORAZEPAM INJ 0.5 MG in SYRINGE 0.75 ML IV PRN (02:00)
[2016-06-01] MEDS ORDERED: LORAZEPAM 2 MG/ML 1 ML VIAL IV PRN (02:00)
[2016-06-01] MEDS: NSS + 20MEQ KCL 1000ML 1,000 ML IV SCH ×4 (03:59→23:07)
[2016-06-01 04:33] VITALS: BP 128/79; PULSE 86; TEMP 37.1; O2SAT 96
[2016-06-01 07:27] VITALS: BP 129/76; PULSE 89; TEMP 36.7; O2SAT 97
[2016-06-01 08:05] LABS: BASO % 0.2 %; BASO ABS # 0.03 K/uL (0-0.2); COMPLETE YES; EOS % 0.2 %; HEMATOCRIT 37.6 % (37-47); IG% 0.1 %; LYMPH % 24.1 %; LYMPH ABS # 2.99 K/uL (1.2-3.4); MEAN CELL VOLUME 88.3 fL (80-100); MEAN CORPUSCULAR HEMOGLOBIN 29.8 pg (25-34); MEAN CORPUSCULAR HGB CONC 33.8 g/dl (32-36); MEAN PLATELET VOLUME 9.7 fL (7.4-10.4); MONO % 6.4 %; PLATELET COUNT 339 K/uL (130-400); RED BLOOD COUNT 4.26 M/uL (4.2-5.4); WHITE BLOOD COUNT 12.39 K/uL (4.8-10.8)
[2016-06-01 08:25] LABS: CALCIUM 8.8 mg/dl (8.5-10.1); CREATININE 0.84 mg/dl (0.60-1.20); POTASSIUM 3.8 mmol/L (3.5-5.1)
[2016-06-01] MEDS: FLUOXETINE HCL 20 MG CAP PO SCH (08:33)
[2016-06-01] MEDS: PANTOprazole INJ 40 MG in SYRINGE 0 ML IV SCH ×2 (08:33→20:41)
[2016-06-01 08:41] LABS: CKMB/CK RATIO 0.3 (0-3.0)
[2016-06-01 11:23] VITALS: BP 138/85; PULSE 93; TEMP 37.4; O2SAT 96
--- NOTE | 2016-06-01 12:23 | DIAGNOSTIC IMAGING REPORT ---
ULTRASOUND RIGHT UPPER QUADRANT ABDOMEN CLINICAL HISTORY: Nausea and vomiting. Generalized abdominal pain.. COMPARISON STUDY: Abdominal CT dated 05/30/2016. TECHNIQUE: Real-time, grayscale, and color flow sonography of the right upper quadrant of the abdomen was performed. Images are reviewed in the transverse and longitudinal planes. FINDINGS: Liver: The liver is enlarged and demonstrates heterogeneously increased echotexture consistent with hepatic steatosis. Fatty sparing is noted adjacent to gallbladder fossa. There is no intrahepatic biliary ductal dilatation. The main portal vein is patent. Gallbladder: Small foci of gallbladder adenomyomatosis are incidentally noted. The gallbladder is otherwise normal in appearance. No gallstones are identified. There is no gallbladder wall thickening or pericholecystic fluid. A sonographic Young's sign is reportedly absent. The common bile duct measures up to 0.4 cm in diameter. Pancreas: Visualized portions of the pancreatic head and body are normal in appearance. The splenic vein is patent. Right kidney: Survey images of the right kidney demonstrate mild cortical atrophy. There is no hydronephrosis. Ascites: None. IMPRESSION: 1. No acute sonographic abnormality is identified in the right upper quadrant. No gallstones are seen. 2. Hepatomegaly and severe hepatic steatosis. Electronically signed by: Guy Amaro M.D. 06/01/2016 12:21 PM Dictated Date/Time: 06/01/2016 12:20 PM
[2016-06-01 14:40] VITALS: BP 149/79; PULSE 86; TEMP 37.4; O2SAT 96
--- NOTE | 2016-06-01 16:03 | CARDIOLOGY CONSULTATION ---
DATE OF CONSULTATION: 06/01/2016 REFERRING PHYSICIAN: Efrain Sprague. CHIEF COMPLAINT: Chest pain. HISTORY OF PRESENT ILLNESS: Mrs. Ember Liu is a 55-year-old woman without a known history of cardiac disease who several days ago began experiencing symptoms of profound nausea, vomiting and diaphoresis. The patient had some symptoms of chest discomfort associated with these episodes, primarily after vomiting. She describes this as a pressure sensation in her chest which was worse with expiration and vomiting. Due to the persistent nature of her gastrointestinal symptoms, the patient presented to [facility] and was admitted to the hospital. During her hospitalization, the patient's symptoms improved with conservative management. She was scheduled to be discharged yesterday; however, the patient did experience additional episodes of nausea and vomiting late last night and again early this morning. Yesterday and several days ago, she had "good days" which did not involve significant nausea, vomiting or any symptoms of chest discomfort. She has essentially vomiting of liquids, but denied vomiting of solid food. She has had some loose stools and diarrhea, although this morning she had a bowel movement that was more formed. She did have some associated subjective fevers and chills over the past few days as well. 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 She does not report symptoms of chest discomfort associated with these activities. She generally has no limiting dyspnea, but with severe exertion will have some shortness of breath. She denies symptoms of orthopnea or paroxysmal nocturnal dyspnea. She has not had any swelling lower extremities. She denies any sense of palpitations, any history of tachycardia and no history of syncope. At the time of this interview, the patient is feeling better. She still has some mild nausea and some anorexia but no current chest discomfort. PAST MEDICAL HISTORY: Significant for psoriasis, arthritis and panic disorder. PAST SURGICAL HISTORY: Includes an appendectomy and subsequent intraabdominal abscess and drainage. OUTPATIENT MEDICATIONS: Include alprazolam, duloxetine, piroxicam, tizanidine. MEDICAL ALLERGIES: INCLUDE OXYCODONE. FAMILY HISTORY: The patient does have some relatives who appeared to have premature coronary artery disease, none of who are female. 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 She has a history of intermittent tobacco abuse, last quitting in February 2016. She denies significant alcohol abuse. REVIEW OF SYSTEMS: A complete 10-system review of systems was performed and the pertinent positives noted in the history of present illness. The remainder of review of systems was negative. She did have the aforementioned constitutional symptoms recently. She has had no change in her bladder habits. She did have the aforementioned diarrhea. She has persistent psoriasis. PHYSICAL EXAMINATION: GENERAL: The patient not appears to have acute distress. She is a pleasant individual who is alert and oriented. Mood and affect appeared normal. CURRENT VITAL SIGNS: Include blood pressure 138/85 with a pulse of 93. HEENT: Sclerae are anicteric. Pupils are equal and reactive to light and accommodation. Extraocular movements were intact. NECK: Palpation of submandibular region not reveal any significant lymphadenopathy. Carotids were palpable bilaterally. There are no bruits on auscultation. I do not appreciate jugular venous distention. Thyroid is not enlarged. LUNGS: Auscultation of both lung solorzano reveal them to be clear. There were no rales, wheezes or rhonchi. She had normal respiratory effort without use of accessory muscles. CARDIAC: Revealed her to be in a regular rhythm. There were no murmurs. S1, S2 were normal and the PMI was not markedly displaced on palpation. ABDOMEN: Soft and nontender. EXTREMITIES: Evaluation of both wrists revealed radial pulses that were equal in intensity. There is no evidence of cyanosis or clubbing. Evaluation of lower extremities did not reveal any significant peripheral edema. She did have a psoriatic type rash on her extremities. LABORATORY STUDIES: Included a white cell count of 12.3, hemoglobin of 12, and platelet count of 339. Chemistry today included sodium 143, potassium of 3.8, BUN was 8, creatinine was 0.84. Serial cardiac biomarkers have been obtained which initially were 0.02 then 0.02, and currently 0.05. The patient does have elevated creatinine kinase, which peaked initially at 3490 and now 1983. Liver function tests were normal. IMAGING DATA: The patient had several imaging studies including a chest x-ray which was normal. She had a CT of her abdomen and pelvis, which did not reveal any evidence of acute disease. The patient had an ultrasound of her gallbladder which was also normal with the exception of thyromegaly and hepatic steatosis. The patient did have a 12-lead EKG performed this morning, which revealed her to be in normal sinus rhythm with a right bundle branch block pattern, compared to an EKG performed earlier in her hospitalization, there was no change. ASSESSMENT AND PLAN: 1. Chest pain. I think the constellation of symptoms associated with the patient's presentation speak against the cardiac etiology for her chest discomfort. She had extended episodes of chest discomfort associated with nausea, vomiting and constitutional symptoms over the past several days and essentially normal biomarkers. The slight elevation in her most recent troponin I think is various and likely artifactual. Her EKG is benign and she otherwise appears to be an active individual without symptoms consistent with coronary insufficiency. She had an echocardiogram ordered, which is yet to be reviewed. I think it is no gross structural abnormalities, and this is a normal echocardiogram. I will not pursue any additional cardiac evaluation for her symptoms. 2. Health maintenance. The patient may have a family history consistent with premature coronary artery disease, although no female with premature coronary artery disease in her family. No liver profile was available for review; however, she does have an element of hepatic steatosis and based on serum studies may benefit from modification of her standard risk factors according to publish guidelines including addition of statin therapy.
--- NOTE | 2016-06-01 16:21 | Progress Note ---
Subjective Date of Service: Jun 01, 2016. Subjective Pt evaluation today including: conversation w/ patient, physical exam, chart review, lab review, review of studies, conversation w/ medical sales consultant, review of inpatient medication list Voiding: no voiding problems Was having rough night last night, she had a lot of heeve after eating meal had some emesis, Possible chest discomfort, EKG was done, troponin was sent, there is one set of troponin minimal elevation\ When I see her she is doing fine, feel hungry, would like to have some clear liquid Problem List Medical Problems: (1) Intractable nausea and vomiting Status: Acute (2) Substernal precordial chest pain Status: Acute Review of Systems Constitutional: No chills, No fatigue, No fever, No problem reported, No sweats , No weakness, No weight loss Eyes: No diplopia, No discharge, No eye pain, No redness, No worsening of vision ENT: No dental problems, No hearing loss, No nasal symptoms, No sore throat, No tinnitus, No trouble swallowing, No unusual epistaxis Respiratory: No cough, No dyspnea at rest, No dyspnea on exertion, No hemoptysis, No shortness of breath, No sputum, No wheezing Cardiac: No PND, No chest pain, No claudication, No edema, No orthopnea, No palpitations Abdomen: No constipation, No diarrhea, No nausea, No pain, No vomiting Musculoskeletal: No calf pain, No joint pain, No muscle pain, No swelling Female : No abnormal vaginal bleeding, No dysuria, No hematuria, No incontinence, No urinary frequency, No vaginal discharge Neurologic: No balance problems, No memory loss, No numbness/tingling, No paralysis, No vertigo, No weakness Psychiatric: No anhedonism, No anxiety, No depression symptoms, No insomnia, No substance abuse Heme: No abnormal bleeding/bruising, No clotting problems, No night sweats, No swollen lymph nodes Endo: No excessive thirst, No excessive urination, No fatigue Skin: No bleeding, No color change, No itch, No new/changing skin lesions, No rash Objective Vital Signs Date Time Temp Pulse Resp B/P Pulse Ox O2 Delivery O2 Flow Rate FiO2 06/01/16 14:40 37.4 86 16 149/79 96 Room Air 06/01/16 12:00 Room Air 06/01/16 11:23 37.4 93 20 138/85 96 Room Air 06/01/16 08:00 Room Air 06/01/16 07:27 36.7 89 18 129/76 97 Room Air 06/01/16 04:33 37.1 86 20 128/79 96 Room Air 06/01/16 04:00 Room Air 06/01/16 00:24 36.5 89 18 158/94 97 Room Air 06/01/16 00:00 Room Air 05/31/16 20:00 Room Air Physical Exam General Appearance: WD/WN, no apparent distress, + obese Eyes: normal inspection, PERRL, EOMI, sclerae normal ENT: normal ENT inspection, hearing grossly normal, pharynx normal Neck: supple, no adenopathy, thyroid normal, no JVD, no carotid bruits, trachea midline Respiratory/Chest: chest non-tender, lungs clear, normal breath sounds, no respiratory distress, no accessory muscle use Cardiovascular: regular rate, rhythm, no edema, no gallop, no JVD, no murmur Abdomen: normal bowel sounds, non tender, soft, no organomegaly, no pulsatile mass Extremities: normal range of motion, non-tender, normal inspection, no pedal edema, no calf tenderness, normal capillary refill, pelvis stable 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: 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, no motor/sensory deficits, alert, normal mood/affect, oriented x 3 Skin: normal color, warm/dry, no rash Lymphatic: no adenopathy Laboratory Results Last 24 Hours Test 06/01/16 07:24 06/01/16 10:03 06/01/16 12:56 White Blood Count 12.39 K/uL Red Blood Count 4.26 M/uL Hemoglobin 12.7 g/dL Hematocrit 37.6 % Mean Corpuscular Volume 88.3 fL Mean Corpuscular Hemoglobin 29.8 pg Mean Corpuscular Hemoglobin Concent 33.8 g/dl Platelet Count 339 K/uL Mean Platelet Volume 9.7 fL Neutrophils (%) (Auto) 69.0 % Lymphocytes (%) (Auto) 24.1 % Monocytes (%) (Auto) 6.4 % Eosinophils (%) (Auto) 0.2 % Basophils (%) (Auto) 0.2 % Neutrophils # (Auto) 8.54 K/uL Lymphocytes # (Auto) 2.99 K/uL Monocytes # (Auto) 0.79 K/uL Eosinophils # (Auto) 0.03 K/uL Basophils # (Auto) 0.03 K/uL RDW Standard Deviation 46.1 fL RDW Coefficient of Variation 14.2 % Immature Granulocyte % (Auto) 0.1 % Immature Granulocyte # (Auto) 0.01 K/uL Sodium Level 143 mmol/L Potassium Level 3.8 mmol/L Chloride Level 109 mmol/L Carbon Dioxide Level 25 mmol/L Anion Gap 9.0 mmol/L Blood Urea Nitrogen 8 mg/dl Creatinine 0.84 mg/dl Est Creatinine Clear Calc Drug Dose 85.6 ml/min Estimated GFR () 92.0 Estimated GFR (Non- 79.3 BUN/Creatinine Ratio 9.0 Random Glucose 88 mg/dl Calcium Level 8.8 mg/dl Magnesium Level 2.0 mg/dl Total Creatine Kinase 1983 U/L Creatine Kinase MB 5.1 ng/ml Creatine Kinase MB Ratio 0.3 Troponin I 0.054 ng/ml 0.026 ng/ml Erythrocyte Sedimentation Rate 2 mm/hr C-Reactive Protein < 0.29 mg/dl Lyme Disease IgG Antibody NEG Assessment and Plan 55-year-old female presents the emergency department with nausea, vomiting, diarrhea, fever, chills and chest pain. Chest Pain (RESOLVED) upon admission, associated with minimal elevated troponin Associated with nausea and vomiting No EKG changes Patient is obesity, possible family history, I check echocardiogram, had pigeon fancier to see I start low dose beta fred, aspirin, and then will go from there Minimal elevated troponin repeated troponin was negative Negative troponin leakage from the GI symptoms Viral Gastroenteritis vs Chronic NSAIDs/Weekend ETOH Use Dehydration with Creatinine phosphokinase elevated - 2745 to 3490 likely secondary to extensive vomiting, which cause dehydrated Will continue IV fluid Check right upper quadrant ultrasound of gallbladder and liver were not remarkable Lipase was negative Continue NSS + KCl 20 mEq at 150 mL/hr Continue Protonix 40 mg IV BID Continue Avoid NSAIDs Continue regular diet, consult about small amount and easy digestive diet - GI following - recommendations reviewed - planning to sign off at this time -- Plan for omeprazole 20 mg daily as outpatient -- Possible outpatient EGD if symptoms persist - patient is scheduled for colonoscopy on Saturday d/w pt Continued [facility] stay due to: multiple IV medications needed Discharge planning: home
[2016-06-01] MEDS: ACETAMINOPHEN 325 MG TAB PO PRN (16:57)
[2016-06-01 19:11] VITALS: BP 136/84; PULSE 77; TEMP 37.1; O2SAT 97
[2016-06-01] MEDS: METOPROLOL TARTRATE 25 MG TAB PO SCH (20:40)
[2016-06-01] MEDS: ALPRAZOLAM 0.5 MG TAB PO SCH (20:41)
[2016-06-02] VITALS (7 sets, daily range): BP systolic 116–197; BP diastolic 71–99; PULSE 69–84; TEMP 36.7–37.1; O2SAT 92–97
[2016-06-02 01:43] LABS: CRYPTOSPORIDIUM AG TC 37213 NOT DETECTED (NOT DETECTED); O&P GIARDIA AG NOT DETECTED (NOT DETECTED)
[2016-06-02 05:48] LABS: BASO % 0.4 %; BASO ABS # 0.03 K/uL (0-0.2); COMPLETE YES; EOS % 2.2 %; HEMATOCRIT 37.1 % (37-47); IG% 0.1 %; LYMPH % 32.6 %; LYMPH ABS # 2.63 K/uL (1.2-3.4); MEAN CELL VOLUME 86.9 fL (80-100); MEAN CORPUSCULAR HEMOGLOBIN 29.3 pg (25-34); MEAN CORPUSCULAR HGB CONC 33.7 g/dl (32-36); MEAN PLATELET VOLUME 9.2 fL (7.4-10.4); MONO % 7.4 %; NEUT % 57.3 %; PLATELET COUNT 307 K/uL (130-400); RED BLOOD COUNT 4.27 M/uL (4.2-5.4); WHITE BLOOD COUNT 8.07 K/uL (4.8-10.8)
[2016-06-02] MEDS: NSS + 20MEQ KCL 1000ML 1,000 ML IV SCH ×3 (05:50→19:54)
[2016-06-02 06:30] LABS: CHOLESTEROL/HDL RATIO 3.7
[2016-06-02] MEDS: METOPROLOL TARTRATE 25 MG TAB PO SCH ×2 (07:47→20:54)
[2016-06-02] MEDS: FLUOXETINE HCL 20 MG CAP PO SCH (07:49)
[2016-06-02] MEDS: ONDANSETRON INJ 2 MG/ML 2 ML VIAL IV PRN (07:54)
[2016-06-02] MEDS ORDERED: ASPIRIN 81 MG ECTAB PO SCH (09:00)
[2016-06-02] MEDS: PROMETHAZINE HCL INJ 12.5 MG in SODIUM CHLORIDE 0.9% 50ML 50 ML IV PRN ×2 (09:11→15:44)
[2016-06-02] MEDS: PANTOprazole INJ 40 MG in SYRINGE 0 ML IV SCH ×2 (09:15→19:54)
[2016-06-02] MEDS ORDERED: NURSING VERBAL MED ORDER ONE ×2 (10:00→13:45)
[2016-06-02] MEDS ORDERED: HydrALAZINE HCL 20 MG/ML VIAL ONE (10:05)
[2016-06-02] MEDS ORDERED: HydrALAZINE HCL 20 MG/ML VIAL IV. PRN (10:30)
[2016-06-02] MEDS ORDERED: METOPROLOL TARTRATE 1 MG/ML VIAL IV STA (12:05)
--- NOTE | 2016-06-02 12:08 | Progress Note ---
Subjective Date of Service: Jun 02, 2016. Subjective Pt evaluation today including: conversation w/ patient, physical exam, chart review, lab review, review of studies, conversation w/ business solutions consultant, review of inpatient medication list Voiding: no voiding problems Has a rough night with nausea and vomiting, after chest pain after warming taking, blood pressure was as tolerated, associated with heart rate elevated Problem List Medical Problems: (1) Intractable nausea and vomiting Status: Acute (2) Substernal precordial chest pain Status: Acute Review of Systems Constitutional: + fatigue, No chills, No fever, No problem reported, No sweats , No weakness, No weight loss Eyes: No diplopia, No discharge, No eye pain, No redness, No worsening of vision ENT: No dental problems, No hearing loss, No nasal symptoms, No sore throat, No tinnitus, No trouble swallowing, No unusual epistaxis Respiratory: No cough, No dyspnea at rest, No dyspnea on exertion, No hemoptysis, No shortness of breath, No sputum, No wheezing Cardiac: + palpitations, No PND, No chest pain, No claudication, No edema, No orthopnea Abdomen: No constipation, No diarrhea, No nausea, No pain, No vomiting Musculoskeletal: No calf pain, No joint pain, No muscle pain, No swelling Female : No abnormal vaginal bleeding, No dysuria, No hematuria, No incontinence, No urinary frequency, No vaginal discharge Neurologic: No balance problems, No memory loss, No numbness/tingling, No paralysis, No vertigo, No weakness Psychiatric: + anxiety, No anhedonism, No depression symptoms, No insomnia, No substance abuse Heme: No abnormal bleeding/bruising, No clotting problems, No night sweats, No swollen lymph nodes Endo: No excessive thirst, No excessive urination, No fatigue Skin: No bleeding, No color change, No itch, No new/changing skin lesions, No rash Objective Vital Signs Date Time Temp Pulse Resp B/P Pulse Ox O2 Delivery O2 Flow Rate FiO2 06/02/16 11:46 36.8 82 16 197/99 97 Room Air 06/02/16 07:40 37.0 82 16 188/95 92 Room Air 06/02/16 04:13 Room Air 06/02/16 00:40 36.7 69 18 145/77 96 Room Air 06/01/16 23:58 Room Air 06/01/16 19:54 Room Air 06/01/16 19:11 37.1 77 20 136/84 97 Room Air 06/01/16 16:00 Room Air 06/01/16 14:40 37.4 86 16 149/79 96 Room Air Physical Exam General Appearance: WD/WN, no apparent distress, + obese Eyes: normal inspection, PERRL, EOMI, sclerae normal ENT: normal ENT inspection, hearing grossly normal, pharynx normal Neck: supple, no adenopathy, thyroid normal, no JVD, no carotid bruits, trachea midline Respiratory/Chest: chest non-tender, lungs clear, normal breath sounds, no respiratory distress, no accessory muscle use Cardiovascular: regular rate, rhythm, no edema, no gallop, no JVD, no murmur Abdomen: normal bowel sounds, non tender, soft, no organomegaly, no pulsatile mass Extremities: normal range of motion, non-tender, normal inspection, no pedal edema, no calf tenderness, normal capillary refill, pelvis stable 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6 % Monocytes (%) (Auto) 7.4 % Eosinophils (%) (Auto) 2.2 % Basophils (%) (Auto) 0.4 % Neutrophils # (Auto) 4.62 K/uL Lymphocytes # (Auto) 2.63 K/uL Monocytes # (Auto) 0.60 K/uL Eosinophils # (Auto) 0.18 K/uL Basophils # (Auto) 0.03 K/uL RDW Standard Deviation 45.0 fL RDW Coefficient of Variation 14.3 % Immature Granulocyte % (Auto) 0.1 % Immature Granulocyte # (Auto) 0.01 K/uL Triglycerides Level 105 mg/dl Cholesterol Level 171 mg/dl HDL Cholesterol 46 mg/dl LDL Cholesterol, Calculated 104 mg/dl VLDL Cholesterol, Calculated 21 mg/dl Cholesterol/HDL Ratio 3.7 Assessment and Plan 55-year-old female presents the emergency department with nausea, vomiting, diarrhea, fever, chills and chest pain. Chest Pain upon admission, associated with minimal elevated troponin Chest pain and an elevated d-dimer, checking chest CT to rule out PE Associated with nausea and vomiting No EKG changes Patient is obesity, possible family history, I check echocardiogram, had procedure writer to see I start low dose beta fred, aspirin, and then will go from there Minimal elevated troponin repeated troponin was negative Negative troponin leakage from the GI symptoms possible Viral Gastroenteritis vs Chronic NSAIDs/Weekend ETOH Use Dehydration with Creatinine phosphokinase elevated - 2745 to 3490 Will continue IV fluid Checked right upper quadrant ultrasound of gallbladder and liver were not remarkable Lipase was negative [email or web address] continue follow up with patient today, it was seen yesterday, pt's condition not getting better Accelerated hypertension with tachycardia, Uncontrolled hypertension has a lot of differential diagnosis which include adenoma, conn syndrome, bijal syndrome, Patient's random cortisol level is high at 55 prior testing, however abdominal CT studies shows adrenal glands and pancreas are normal TSH was normal Check renin, Aldactone level, Continue NSS + KCl 20 mEq at 150 mL/hr Continue Protonix 40 mg IV BID Continue Avoid NSAIDs Continue diet as tolerated - GI following - recommendations reviewed Discussed with on-call GI, planning Saturday EGD if symptoms persist patient is scheduled for colonoscopy on Saturday d/w pt Continued [facility] stay due to: multiple IV medications needed Discharge planning: home
--- NOTE | 2016-06-02 12:54 | Gastroenterology Progress Note ---
Progress Note Date of Service: Jun 02, 2016 Subjective Pt evaluation today including: conversation w/ patient, physical exam I saw the patient this afternoon for recurrent nausea and vomiting. She notes that she can only tolerate liquids. Several times during the interview she asked me for benzodiazepines and to "knock her out". Review of Systems Constitutional: No chills, No fever, No weight loss ENT: No hearing loss, No sore throat, No trouble swallowing Respiratory: + dyspnea on exertion, No cough Medications Current Inpatient Medications Medications (Trade) Dose Ordered Sig/Juan R Route Start Time Stop Time Status Last Admin Dose Admin Promethazine HCl 12.5 mg/Sodium Chloride 50.5 ml @ 204 mls/hr Q6H PRN IV 05/30/16 15:00 06/29/16 14:59 06/02/16 09:11 204 MLS/HR Potassium Chloride/Sodium Chloride 1,000 ml @ 150 mls/hr Q6H40M IV 05/30/16 18:30 06/29/16 14:59 06/02/16 05:50 150 MLS/HR Pantoprazole Sodium/Syringe (Protonix Inj/ Syringe) 10 ml @ 5 mls/min DAILY@ IV 05/30/16 21:00 06/29/16 20:59 06/02/16 09:15 5 MLS/MIN Acetaminophen (Tylenol Tab) 650 mg Q4H PRN PO 05/30/16 15:00 06/29/16 14:59 06/01/16 16:57 650 MG Ondansetron HCl (Zofran Inj) 4 mg Q6H PRN IV 05/30/16 15:00 06/29/16 14:59 06/02/16 07:54 4 MG Nitroglycerin (Nitrostat Tab) 0.4 mg UD PRN SL 05/30/16 15:00 06/29/16 14:59 Alprazolam (Xanax Tab) 0.5 mg HS PO 05/30/16 21:00 06/29/16 20:59 06/01/16 20:41 0.5 MG Fluoxetine HCl (Prozac Cap) 20 mg QAM PO 05/31/16 09:00 06/30/16 08:59 06/02/16 07:49 20 MG Miscellaneous 1 ea 1 ea PRN PRN N/A 05/30/16 16:00 05/30/17 15:59 Lorazepam/Syringe (Ativan Inj/ Syringe) 1 ml @ 1 mls/min Q4H PRN IV 06/01/16 02:00 07/01/16 01:59 06/02/16 10:55 1 MLS/MIN Lorazepam (Ativan Inj) 0.5 mg Q4H PRN IV 06/01/16 02:00 07/01/16 01:59 Hydralazine HCl (HydrALAZINE INJ) 20 mg Q6H PRN IV. 06/02/16 10:30 07/02/16 10:29 Metoprolol Tartrate (Lopressor Tab) 25 mg BID PO 06/02/16 21:00 07/02/16 20:59 Objective Vital Signs Date Time Temp Pulse Resp B/P Pulse Ox O2 Delivery O2 Flow Rate FiO2 06/02/16 12:30 82 197/99 06/02/16 11:46 36.8 82 16 197/99 97 Room Air 06/02/16 07:40 37.0 82 16 188/95 92 Room Air 06/02/16 04:13 Room Air 06/02/16 00:40 36.7 69 18 145/77 96 Room Air 06/01/16 23:58 Room Air 06/01/16 19:54 Room Air 06/01/16 19:11 37.1 77 20 136/84 97 Room Air 06/01/16 16:00 Room Air 06/01/16 14:40 37.4 86 16 149/79 96 Room Air Physical Exam General Appearance: no apparent distress Eyes: PERRL Neck: no JVD Respiratory/Chest: lungs clear Cardiovascular: regular rate, rhythm, no JVD, no murmur Abdomen: soft Neurologic/Psych: oriented x 3 Laboratory Results Last 24 Hours Test 06/01/16 12:56 06/02/16 05:28 06/02/16 12:45 Troponin I 0.026 ng/ml White Blood Count 8.07 K/uL Red Blood Count 4.27 M/uL Hemoglobin 12.5 g/dL Hematocrit 37.1 % Mean Corpuscular Volume 86.9 fL Mean Corpuscular Hemoglobin 29.3 pg Mean Corpuscular Hemoglobin Concent 33.7 g/dl Platelet Count 307 K/uL Mean Platelet Volume 9.2 fL Neutrophils (%) (Auto) 57.3 % Lymphocytes (%) (Auto) 32.6 % Monocytes (%) (Auto) 7.4 % Eosinophils (%) (Auto) 2.2 % Basophils (%) (Auto) 0.4 % Neutrophils # (Auto) 4.62 K/uL Lymphocytes # (Auto) 2.63 K/uL Monocytes # (Auto) 0.60 K/uL Eosinophils # (Auto) 0.18 K/uL Basophils # (Auto) 0.03 K/uL RDW Standard Deviation 45.0 fL RDW Coefficient of Variation 14.3 % Immature Granulocyte % (Auto) 0.1 % Immature Granulocyte # (Auto) 0.01 K/uL Triglycerides Level 105 mg/dl Cholesterol Level 171 mg/dl HDL Cholesterol 46 mg/dl LDL Cholesterol, Calculated 104 mg/dl VLDL Cholesterol, Calculated 21 mg/dl Cholesterol/HDL Ratio 3.7 Assessment and Plan Patient with subjective complaint of nausea and vomiting. Her imaging studies and other evaluation have been negative to date. I wonder if her symptoms may be related to perhaps a side effect of Prozac or drug-related. I would suggest further evaluation with a drug screen to evaluate for evidence of marijuana use. Another possibility is symptoms related to irritable bowel syndrome. Plan Drug screen ordered\\ Discontinue Prozac please EGD on Saturday Try emend, ordered Please call with any additional questions or concerns over the weekend. coverage to resume on Saturday
[2016-06-02] MEDS ORDERED: FOSAPREPITANT DIMEGLUMINE INJ 150 MG in SODIUM CHLORIDE 0.9% 150ML 145 ML IV SCH (13:30)
[2016-06-02] MEDS ORDERED: OPTIRAY 320 IV PRN (13:45)
[2016-06-02] MEDS ORDERED: ALPRAZOLAM 0.5 MG TAB PO ONE (14:00)
--- NOTE | 2016-06-02 15:20 | DIAGNOSTIC IMAGING REPORT ---
CT ANGIOGRAPHY OF THE CHEST, PULMONARY EMBOLUS PROTOCOL CLINICAL HISTORY: Chest pain and shortness of breath COMPARISON STUDY: Chest radiograph May 30, 2016. TECHNIQUE: Following IV administration of 93 mL of [id number], helical axial images of the chest were obtained utilizing the pulmonary embolus protocol. Maximal intensity projections and sagittal and coronal reformats were viewed on an independent 3D workstation. IV contrast was administered without complication. CT DOSE: 493.93 mGy.cm FINDINGS: No pulmonary emboli are identified. There is no evidence of thoracic aortic dissection. The size of the heart is at the upper limits of normal. There is no pericardial effusion. Central airways are patent. Linear left lung opacities are consistent with atelectasis. There is mild mosaic attenuation within the lungs. There is a trace left pleural effusion. There is no pneumothorax. There is no thoracic lymphadenopathy. Note is made of fatty infiltration of the liver. There are old left rib fractures. IMPRESSION: 1. No pulmonary emboli identified. 2. Trace left pleural effusion. 3. Mild mosaic attenuation within lungs which could reflect air trapping. 4. Linear left lung opacities consistent with atelectasis. Electronically signed by: Atilio Barnett M.D. 06/02/2016 3:19 PM Dictated Date/Time: 06/02/2016 3:12 PM
[2016-06-02 17:55] LABS: BENZODIAZEPINE, URINE NEG (NEG); COCAINE,URINE NEG (NEG); PHENCYCLIDINE, URINE NEG (NEG)
[2016-06-02 18:03] LABS: ESTIMATED AVERAGE GLUCOSE 108 mg/dl; HA1C FLAG Normal (Normal)
[2016-06-03] MEDS: ACETAMINOPHEN 325 MG TAB PO PRN ×2 (01:15→15:29)
[2016-06-03] MEDS: NSS + 20MEQ KCL 1000ML 1,000 ML IV SCH ×4 (02:08→22:00)
[2016-06-03 07:22] VITALS: BP 138/84; PULSE 71; TEMP 36.6; O2SAT 95
[2016-06-03] MEDS: METOPROLOL TARTRATE 25 MG TAB PO SCH ×2 (08:37→19:47)
[2016-06-03] MEDS: PANTOprazole INJ 40 MG in SYRINGE 0 ML IV SCH ×2 (08:37→19:47)
[2016-06-03 11:24] VITALS: BP 135/82; PULSE 70; TEMP 36.9; O2SAT 95
--- NOTE | 2016-06-03 14:58 | Progress Note ---
Subjective Date of Service: Jun 03, 2016. Subjective Pt evaluation today including: conversation w/ patient, conversation w/ family , physical exam, chart review, lab review, review of studies, review of inpatient medication list No more nausea vomiting, no chest pain, tolerate clear liquid diet, feeling better Problem List Medical Problems: (1) Intractable nausea and vomiting Status: Acute (2) Substernal precordial chest pain Status: Acute Review of Systems Constitutional: No chills, No fatigue, No fever, No problem reported, No sweats , No weakness, No weight loss Eyes: No diplopia, No discharge, No eye pain, No redness, No worsening of vision ENT: No dental problems, No hearing loss, No nasal symptoms, No sore throat, No tinnitus, No trouble swallowing, No unusual epistaxis Respiratory: No cough, No dyspnea at rest, No dyspnea on exertion, No hemoptysis, No shortness of breath, No sputum, No wheezing Cardiac: No PND, No chest pain, No claudication, No edema, No orthopnea, No palpitations Abdomen: No constipation, No diarrhea, No nausea, No pain, No vomiting Musculoskeletal: No calf pain, No joint pain, No muscle pain, No swelling Female : No abnormal vaginal bleeding, No dysuria, No hematuria, No incontinence, No urinary frequency, No vaginal discharge Neurologic: No balance problems, No memory loss, No numbness/tingling, No paralysis, No vertigo, No weakness Psychiatric: No anhedonism, No anxiety, No depression symptoms, No insomnia, No substance abuse Heme: No abnormal bleeding/bruising, No clotting problems, No night sweats, No swollen lymph nodes Endo: No excessive thirst, No excessive urination, No fatigue Skin: No bleeding, No color change, No itch, No new/changing skin lesions, No rash Objective Vital Signs Date Time Temp Pulse Resp B/P Pulse Ox O2 Delivery O2 Flow Rate FiO2 06/03/16 11:24 36.9 70 16 135/82 95 Room Air 06/03/16 08:00 Room Air 06/03/16 07:22 36.6 71 20 138/84 95 Room Air 06/03/16 04:00 Room Air 06/03/16 00:02 Room Air 06/02/16 23:54 37.1 75 18 122/71 97 Room Air 06/02/16 20:00 Room Air 06/02/16 19:47 36.8 82 18 132/81 96 Room Air 06/02/16 16:00 Room Air 06/02/16 15:09 36.9 84 18 116/76 95 Room Air Physical Exam General Appearance: WD/WN, no apparent distress, + obese Eyes: normal inspection, PERRL, EOMI, sclerae normal ENT: normal ENT inspection, hearing grossly normal, pharynx normal Neck: supple, no adenopathy, thyroid normal, no JVD, no carotid bruits, trachea midline Respiratory/Chest: chest non-tender, lungs clear, normal breath sounds, no respiratory distress, no accessory muscle use Cardiovascular: regular rate, rhythm, no edema, no gallop, no JVD, no murmur Abdomen: normal bowel sounds, non tender, soft, no organomegaly, no pulsatile mass Extremities: normal range of motion, non-tender, normal inspection, no pedal edema, no calf tenderness, normal capillary refill, pelvis stable 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, no motor/sensory deficits, alert, normal mood/affect, oriented x 3 Skin: normal color, warm/dry, no rash Lymphatic: no adenopathy Laboratory Results Last 24 Hours Test 06/02/16 16:06 06/02/16 17:25 06/03/16 08:08 Estimated Average Glucose 108 mg/dl Hemoglobin A1c 5.4 % Urine Opiates Screen NEG Urine Methadone, Qualitative NEG Urine Barbiturates NEG Urine Phencyclidine (PCP) Level NEG Ur Amphetamine/Methamphetamine NEG MDMA (Ecstasy) Screen NEG Urine Benzodiazepines Screen NEG Urine Cocaine Metabolite NEG Urine Marijuana (THC) POS Assessment and Plan 55-year-old female presents the emergency department with nausea, vomiting, diarrhea, fever, chills and chest pain was admitted to hospital on 05/30/2016 Chest Pain upon admission, associated with minimal elevated troponin , EKG negative, don't believe is cardiac related Chest pain and an elevated d-dimer, checked chest CT has ruled out PE Intractable nausea vomiting, differential diagnosis include gastritis, medication induced, or illicit drug abuse possible Viral Gastroenteritis vs Chronic NSAIDs/Weekend ETOH Use, urine drug screening positive for marijuana Hold aspirin because nausea and vomiting, I have counselling to stay away from illicit drug Dehydration with Creatinine phosphokinase elevated upon admission likely because of nausea vomiting and dehydration continue IV fluid Checked right upper quadrant ultrasound of gallbladder and liver were not remarkable Lipase was negative Accelerated hypertension with tachycardia, Uncontrolled hypertension has a lot of differential diagnosis which include adenoma, conn syndrome, bijal syndrome, Patient's random cortisol level is high at 53 per testing, however abdominal CT studies shows adrenal glands and pancreas are normal TSH was normal Check renin, Aldactone level, we'll follow-up results, and I told patient and baseband in bedside, recs to be referral to endocrinology by pcp to further evaluation Continue NSS + KCl 20 mEq at 150 mL/hr Continue Protonix 40 mg IV BID Continue Avoid NSAIDs Continue diet as tolerated - GI following - recommendations Discussed with on-call GI, planning Saturday EGD if symptoms persist patient is scheduled for colonoscopy on Saturday I am Calling GI to confirm the above planning d/w pt Continued [facility] stay due to: multiple IV medications needed Discharge planning: home
[2016-06-03 15:02] VITALS: BP 137/73; PULSE 65; TEMP 37; O2SAT 97
[2016-06-03 19:33] VITALS: BP 137/73; PULSE 65; TEMP 37; O2SAT 97
[2016-06-03 20:00] VITALS: BP 152/88; PULSE 62; TEMP 37.1; O2SAT 96
[2016-06-03 23:48] VITALS: BP 146/88; PULSE 74; TEMP 37; O2SAT 97
[2016-06-04 04:00] VITALS: BP 150/90; PULSE 77; TEMP 37.1; O2SAT 95
[2016-06-04] MEDS: NSS + 20MEQ KCL 1000ML 1,000 ML IV SCH ×2 (04:48→11:28)
[2016-06-04] MEDS: METOPROLOL TARTRATE 25 MG TAB PO SCH (07:48)
[2016-06-04 07:49] VITALS: BP 159/90; PULSE 76; TEMP 37; O2SAT 93
[2016-06-04] MEDS: PANTOprazole INJ 40 MG in SYRINGE 0 ML IV SCH (08:21)
[2016-06-04] MEDS ORDERED: LIDOCAINE HCL 2% 2 ML VIAL (20MG/ML) ONE (10:27)
[2016-06-04] MEDS ORDERED: PROPOFOL IV EMULSION 10 MG/ML 20 ML VIAL IV ONE (10:27)
[2016-06-04] MEDS ORDERED: ONDANSETRON INJ 2 MG/ML 2 ML VIAL ONE (10:33)
--- NOTE | 2016-06-04 10:40 | Anesthesiology Progress Note ---
Anesthesia Post Op Note Date & Time Jun 04, 2016 at 10:38 Vital Signs Pain Intensity: 0 Vital Signs Past 12 Hours Date Time Temp Pulse Resp B/P Pulse Ox O2 Delivery O2 Flow Rate FiO2 06/04/16 10:25 68 16 143/74 98 Room Air 06/04/16 09:54 37.1 69 18 99/ 99 Room Air 06/04/16 07:49 37.0 76 17 159/90 93 Room Air 06/04/16 07:45 Room Air 06/04/16 04:00 Room Air 06/04/16 04:00 37.1 77 20 150/90 95 Room Air 06/04/16 00:00 Room Air 06/03/16 23:48 37.0 74 20 146/88 97 Room Air Notes Mental Status: alert / awake / arousable, participated in evaluation Pt Amnestic to Procedure: Yes Nausea / Vomiting: adequately controlled Pain: adequately controlled Airway Patency, RR, SpO2: stable & adequate BP & HR: stable & adequate Hydration State: stable & adequate Anesthetic Complications: no major complications apparent Pt continues to have nausea. We gave Zofran which didn't really help. We're now giving Phenergan which did help yesterday. We have other options if necessary.
--- NOTE | 2016-06-04 10:42 | GI REPORT ---
Procedure Date: 06/04/2016 10:06 AM Procedure: Upper GI endoscopy Indications: Nausea with vomiting Medicines: Monitored Anesthesia Care Complications: No immediate complications. Estimated blood loss: Minimal. Estimated Blood Loss: Estimated blood loss was minimal. Procedure: Pre-Anesthesia Assessment: - Prior to the procedure, a History and Physical was performed, and patient medications, allergies and sensitivities were reviewed. The patient's tolerance of previous anesthesia was reviewed. - The risks and benefits of the procedure and the sedation options and risks were discussed with the patient. All questions were answered and informed consent was obtained. - Patient identification and proposed procedure were verified prior to the procedure by the physician, the nurse and the organ recovery coordinator. The procedure was verified in the procedure room. - Pre-procedure physical examination revealed no contraindications to sedation. - ASA Grade Assessment: II - A patient with mild systemic disease. - After reviewing the risks and benefits, the patient was deemed in satisfactory condition to undergo the procedure. - The anesthesia plan was to use monitored anesthesia care (MAC). - Immediately prior to administration of medications, the patient was re-assessed for adequacy to receive sedatives. - The heart rate, respiratory rate, oxygen saturations, blood pressure, adequacy of pulmonary ventilation, and response to care were monitored throughout the procedure. - The physical status of the patient was re-assessed after the procedure. After obtaining informed consent, the endoscope was passed under direct vision. Throughout the procedure, the patient's blood pressure, pulse, and oxygen saturations were monitored continuously. The scope was introduced through the mouth, and advanced to the third part of duodenum. The upper GI endoscopy was accomplished without difficulty. The patient tolerated the procedure well. Findings: The examined esophagus was normal. The Z-line was regular and was found 37 cm from the incisors. The entire examined stomach was normal. Biopsies were taken with a cold forceps for histology. Estimated blood loss was minimal. Localized mild inflammation characterized by congestion (edema), erythema and granularity was found in the duodenal bulb. Biopsies were taken with a cold forceps for histology. Estimated blood loss was minimal. The 2nd part of the duodenum and 3rd part of the duodenum were normal. Biopsies for histology were taken with a cold forceps for evaluation of celiac disease. Estimated blood loss was minimal. Impression: - Normal esophagus. - Z-line regular, 37 cm from the incisors. - Normal stomach. Biopsied. - Chronic duodenitis, likley medication related. Biopsied. - Normal 2nd part of the duodenum and 3rd part of the duodenum. Biopsied. Recommendation: - Observe patient's clinical course. - Await pathology results. - Symptoms likely related to Marijuana use - Protonix 20 mg per day for 6 to 8 weeks - July d/c from a GI standpoint. Gabriel Torres D.O. Gabriel Torres, 06/04/2016 10:25:23 AM This report has been signed electronically. Note Initiated On: 06/04/2016 10:06 AM I attest to the content of the Intraoperative Record and orders documented therein, exceptions below
[2016-06-04] MEDS: PROMETHAZINE HCL INJ 12.5 MG in SODIUM CHLORIDE 0.9% 50ML 50 ML IV PRN (10:59)
[2016-06-04 11:47] VITALS: BP 145/84; PULSE 63; TEMP 37.1; O2SAT 98
[2016-06-04 12:46] VITALS: BP 145/84; PULSE 63; TEMP 37.1; O2SAT 98
--- NOTE | 2016-06-04 14:51 | Discharge Instructions ---
Discharge Instructions Date of Service Jun 04, 2016. Admission Reason for Admission: Chest Pain, Intractable Vomiting Discharge Discharge Diagnosis / Problem: intractable nausea vomiting, likely secondary to marijuana intake Discharge Goals Goal(s): Decrease discomfort, Improve function, Increase independence, Improve disease control, Improve nutritional status, Learn about illness, Diagnostic testing, Therapeutic intervention, Prevent Disease Progression, Specific goals Activity Recommendations Activity Limitations: resume your previous activity Lifting Limitations: none . Instructions / Follow-Up Instructions / Follow-Up you have Intractable nausea vomiting, possible from marijuana use You have Accelerated hypertension with tachycardia, we'll random cortisol level is high at 53 per testing, however abdominal CT studies shows adrenal glands and pancreas are normal, I have sent renin, Aldactone level, you need to follow- up with PCP for the results, and I recommend to be referral to endocrinology by pcp to further evaluation Continue Avoid NSAIDs, and marijuana Continue diet as tolerated, follow-up with the Dr. Torres certified medical coding specialist as instructed Take medication as instructed: Protonix 20 mg per day for 6 to 8 weeks - you need to follow up with your primary care physician in 1 week, - take medication as instructed, never overdose or any misuse, or take with alcohol, because misuse of medicine may cause organ damage or , call your primary care physician if have questions of medicaitons. - call your primary care physician OR go to local emergency room if has any fever/chill, chest pain, shortness of breathing, nausea/vomiting/abdominal pain , facial droop/slurry speech/local weakness, or if has any questions. - fall precaution - diet as instructed - you need to follow up with your subspecialist - you should understand that it is important to follow up the above instruction , and "not following the above instruction" may cause delayed or missed care of your medical conditions which may cause permanent organ damage and even . Current Hospital Diet Patient's current hospital diet: Regular Diet Discharge Diet Recommended Diet: AHA Diet (Heart Healthy) Procedures Procedures Performed: EGD WITH BX Pending Studies Studies pending at discharge: yes List of pending studies: in the discharge instruction Laboratory Results Hemoglobin A1c Test 06/02/16 16:06 Range/Units Estimated Average Glucose 108 mg/dl Hemoglobin A1c 5.4 4.5-5.6 % Lipid Panel Test 06/02/16 05:28 Range/Units Triglycerides Level 105 0-150 mg/dl Cholesterol Level 171 0-200 mg/dl HDL Cholesterol 46 mg/dl Cholesterol/HDL Ratio 3.7 LDL Cholesterol, Calculated 104 mg/dl Medical Emergencies . Who to Call and When: Medical Emergencies: If at any time you feel your situation is an emergency, please call 911 immediately. . Non-Emergent Contact Non-Emergency issues call your: Primary Care Provider, Timber Sprinkler . . "Provider Documentation" section prepared by Efrain Sprague. VTE Core Measure Inpt VTE Proph given/why not?: Bev Ashraf, SCD's
[2016-06-04] MEDS ORDERED: LPR25 PO (14:55)
--- NOTE | 2016-06-04 15:05 | Discharge Summary ---
Discharge Summary Date of Service Jun 04, 2016. 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 Medication Reconciliation New Medications: Omeprazole (Omeprazole) 20 Mg Tab 1 TAB PO DAILY for 30 Days, #30 TAB 0 Refills Ondasetron Odt (Zofran Odt) 4 Mg Tab 4 MG SL Q6H PRN for Nausea, #8 TAB Metoprolol Tartrate (Lopressor) 25 Mg Tab 25 MG PO BID for 30 Days, #60 TAB Continued Medications: Alprazolam (Xanax) 0.5 Mg Tab 0.5 MG PO HS, TAB Fluoxetine (Prozac) 20 Mg Cap 20 MG PO QAM, CAP Hydrocodone/Acetaminophen 5MG/325MG ([place] 5MG/325MG) Tab 1-2 TABLETS PO Q4H PRN for Pain, TAB PRN PAIN Tizanidine (Zanaflex ) 4 Mg Tab 4-8 MG PO TID, TAB Discontinued Medications: Piroxicam (Piroxicam) 20 Mg Cap 20 MG PO QPM for 30 Days, CAP 1 Refill WITH EVENING MEAL Discharge Exam Had EGD done this morning, doing okay, tolerate some clear liquid, no more nausea vomiting Review of Systems: Constitutional: No chills, No fatigue, No fever, No problem reported, No sweats, No weakness, No weight loss Eyes: No diplopia, No discharge, No eye pain, No problem reported, No redness, No worsening of vision ENT: No dental problems, No hearing loss, No nasal symptoms, No problem reported, No sore throat, No tinnitus, No trouble swallowing, No unusual epistaxis Respiratory: No cough, No dyspnea at rest, No dyspnea on exertion, No hemoptysis, No problem reported, No shortness of breath, No sputum, No wheezing Cardiovascular: No PND, No chest pain, No claudication, No edema, No orthopnea, No palpitations, No problem reported Abdomen: No GI bleeding, No constipation, No diarrhea, No nausea, No pain, No problem reported, No vomiting Musculoskeletal: No calf pain, No joint pain, No muscle pain, No problem reported, No swelling Genitourinary - Female: No dysmenorrhea, No dysuria, No hematuria, No menorrhagia, No metrorrhagia, No , No problem reported, No rash, No urinary frequency, No urinary incontinence, No urinary retention, No urinary urgency, No vaginal bleeding, No vaginal discharge, No vaginal itching, No vulvodynia Neurologic: No balance problems, No memory loss, No numbness/tingling, No paralysis, No problem reported, No vertigo, No weakness Psychiatric: No anhedonism, No anxiety, No depression symptoms, No insomnia , No problem reported, No substance abuse Endocrine: No excessive thirst, No excessive urination, No fatigue, No problem reported Hematologic / Lymphatic: No abnormal bleeding/bruising, No clotting problems , No night sweats, No problem reported, No swollen lymph nodes Integumentary: No bleeding, No color change, No itch, No new/changing skin lesions, No problem reported, No rash Physical Exam: General Appearance: WD/WN, + obese Eyes: normal inspection, PERRL, EOMI ENT: normal ENT inspection, hearing grossly normal, TMs normal Neck: supple, no adenopathy, thyroid normal Respiratory/Chest: chest non-tender, normal breath sounds, no respiratory distress, no accessory muscle use, + decreased breath sounds Cardiovascular: regular rate, rhythm, no edema, no gallop, no JVD Abdomen / GI: normal bowel sounds, non tender, soft, no organomegaly, no pulsatile mass Extremities: normal inspection, no calf tenderness, normal capillary refill , no pedal edema, normal range of motion 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 nml as tested, no motor/sensory deficits , alert, normal mood/affect, normal reflexes, oriented x 3 Skin: normal color, warm/dry, no rash Lymphatic: no adenopathy Hospital Course 55-year-old female presents the emergency department with nausea, vomiting, diarrhea, fever, chills and chest pain was admitted to hospital on 05/30/2016 Chest Pain upon admission, associated with minimal elevated troponin , EKG negative, don't believe is cardiac related, cardiology saw patient, no need for further workup Chest pain and an elevated d-dimer, checked chest CT has ruled out PE Intractable nausea vomiting, differential diagnosis include gastritis, medication induced, or illicit drug abuse possible Viral Gastroenteritis vs Chronic NSAIDs/Weekend ETOH Use, urine drug screening positive for marijuana Hold aspirin because nausea and vomiting, I have counselling to stay away from illicit drug Dehydration with Creatinine phosphokinase elevated upon admission likely because of nausea vomiting and dehydration continue IV fluid Checked right upper quadrant ultrasound of gallbladder and liver were not remarkable Lipase was negative Accelerated hypertension with tachycardia, Uncontrolled hypertension has a lot of differential diagnosis which include adenoma, conn syndrome, bijal syndrome, Patient's random cortisol level is high at 53 per testing, however abdominal CT studies shows adrenal glands and pancreas are normal TSH was normal Check renin, Aldactone level, we'll follow-up results, and I told patient and baseband in bedside, recs to be referral to endocrinology by pcp to further evaluation Has been treated NSS + KCl 20 mEq at 150 mL/hr Is being treated with Protonix 40 mg IV BID Continue Avoid NSAIDs Continue diet as tolerated EGD dome today: - Normal esophagus. - Z-line regular, 37 cm from the incisors. - Normal stomach. Biopsied. - Chronic duodenitis, likley medication related. Biopsied. - Normal 2nd part of the duodenum and 3rd part of the duodenum. Biopsied. Recommendation: - Observe patient's clinical course. - Await pathology results. - Symptoms likely related to Marijuana use - Protonix 20 mg per day for 6 to 8 weeks - May d/c from a GI standpoint. d/w pt Discharge instruction you have Intractable nausea vomiting, possible from marijuana use You have Accelerated hypertension with tachycardia, we'll random cortisol level is high at 53 per testing, however abdominal CT studies shows adrenal glands and pancreas are normal, I have sent renin, Aldactone level, you need to follow- up with PCP for the results, and I recommend to be referral to endocrinology by pcp to further evaluation Continue Avoid NSAIDs, and marijuana Continue diet as tolerated, follow-up with the Dr. Torres soil specialist as instructed Take medication as instructed: Protonix 20 mg per day for 6 to 8 weeks - you need to follow up with your primary care physician in 1 week, - take medication as instructed, never overdose or any misuse, or take with alcohol, because misuse of medicine may cause organ damage or , call your primary care physician if have questions of medicaitons. - call your primary care physician OR go to local emergency room if has any fever/chill, chest pain, shortness of breathing, nausea/vomiting/abdominal pain , facial droop/slurry speech/local weakness, or if has any questions. - fall precaution - diet as instructed - you need to follow up with your subspecialist - you should understand that it is important to follow up the above instruction , and "not following the above instruction" may cause delayed or missed care of your medical conditions which may cause permanent organ damage and even . Total Time Spent: Greater than 30 minutes This includes examination of the patient, discharge planning, medication reconciliation, and communication with other providers. Discharge Instructions Please refer to the electronic Patient Visit Report (Discharge Instructions) for additional information. Additional Copies To Gabriel Torres, DO; Khalif Dang D.O.
[2016-06-04 16:52] VITALS: BP 147/84; PULSE 73; TEMP 37.1; O2SAT 95
[2016-06-05] MEDS ORDERED: PANTOprazole SOD 40 MG TAB PO SCH (09:00)
== END 2016-06-04 19:59 | disposition home or self-care (01) | DRG 392 ==
LOC: ENRESERVTM → ENRESERVDT → C.EDB 08:20 → C.MED 15:01 → OBSVTOIN 06-01 12:47
PROVIDERS: ADMIT Family Medicine; ATTEND Hospitalist
PROC: 0DB68ZX Excision of Stomach, Via Natural or Artificial Opening Endoscopic, Diagnostic (ICD-10-PCS; principal; 2016-06-04 09:51)
PROC: 0DB98ZX Excision of Duodenum, Via Natural or Artificial Opening Endoscopic, Diagnostic (ICD-10-PCS; principal; 2016-06-04 09:51)
DX: A08.4 Viral intestinal infection, unspecified (principal); R07.89 Other chest pain; B34.9 Viral infection, unspecified; E87.6 Hypokalemia; E86.0 Dehydration; F41.0 Panic disorder [episodic paroxysmal anxiety]; E66.9 Obesity, unspecified; I10 Essential (primary) hypertension; R11.2 Nausea with vomiting, unspecified; T40.7X1A Poisoning by cannabis (derivatives), accidental (unintentional), initial encounter; R00.0 Tachycardia, unspecified; R19.7 Diarrhea, unspecified; R50.9 Fever, unspecified; R79.89 Other specified abnormal findings of blood chemistry; R82.5 Elevated urine levels of drugs, medicaments and biological substances; K20.9 Esophagitis, unspecified; K29.80 Duodenitis without bleeding; Z87.891 Personal history of nicotine dependence; Z79.1 Long term (current) use of non-steroidal anti-inflammatories (NSAID); Z79.899 Other long term (current) drug therapy; Z79.891 Long term (current) use of opiate analgesic; Z68.30 Body mass index [BMI] 30.0-30.9, adult